=== PATIENT | female | born 1960 | race Caucasian/White ===

== ENCOUNTER 2020-09-25 16:10 | Outpatient (REF) | payer OTHER, SELFPAY ==
--- NOTE | 2020-09-25 | MM_ITS ---
EXAMINATION: MM SCREENING DIGITAL BREAST TOMOSYNTHESIS, BILATERAL CLINICAL INFORMATION: Screening. Asymptomatic. Family history breast cancer in mother and sister. Benign right MR guided biopsy 12/18/2017 (benign breast tissue with stromal fibrosis, apocrine metaplasia, and microcysts). The lifetime risk of breast cancer based on the Tyrer-Cuzick Model is 23%. COMPARISON: Mammography: 03/11/2019, 12/18/2017, 12/08/2017; MRI breasts 11/10/2019. TECHNIQUE: Digital breast tomosynthesis is performed in both the craniocaudal and mediolateral oblique views along with computer-aided detection (CAD). Synthesized 2D images are generated from the tomosynthesis. FINDINGS: There are scattered areas of fibroglandular density (ACR BI-RADS breast composition Category b). Parenchymal pattern is similar to prior studies. There is no developing density or interval mass or architectural abnormality. Retroareolar duct ectasia on the right is stable from prior studies. The left breast shows no abnormal calcifications. The bilateral axilla and skin contours are unremarkable. There is biopsy clip marker again noted anterior central right breast. There are new calcifications at the biopsy site around the clip possibly related to fat necrosis. Patient will be recalled for additional magnification views. MM/MM tomosynthesis screening BI IMPRESSION: 1. Right: New calcifications around the biopsy clip marker anterior right breast. 2. Left: No mammographic evidence of malignancy. ASSESSMENT: BI-RADS 0: Incomplete - Need Additional Imaging Evaluation RECOMMENDATION: 1. Additional views of the right breast (magnification CC, magnification ML). 2. Radiology department staff will contact the patient for additional imaging. 3. The lifetime risk of breast cancer based on the Tyrer-Cuzick Model is 23%. Continued additional annual adjunct screening with breast MRI is also suggested. This patient's information was entered into a reminder system with a target due date for their next mammogram.
== END 2020-09-25 16:11 | disposition home or self-care (01) ==
LOC: HO.MAMMO 16:10
PROVIDERS: PCP Internal Medicine; Visit Provider Internal Medicine
DX: Z12.31 Encounter for screening mammogram for malignant neoplasm of breast (principal)
CPT/HCPCS: 77063; 77067

== ENCOUNTER 2020-10-01 09:42 | Outpatient (REF) | payer OTHER, SELFPAY ==
--- NOTE | 2020-10-01 | MM_ITS ---
EXAMINATION: MM DIAGNOSTIC DIGITAL MAMMOGRAPHY, RIGHT CLINICAL INFORMATION: Recall from screening for new round calcifications around biopsy clip marker right breast. Prior history MR guided biopsy 12/18/2017 (benign breast tissue with stromal fibrosis, apocrine metaplasia, and microcysts). COMPARISON: Mammography: 09/25/2020, 03/11/2019, MR breasts 11/10/2019, MR guided biopsy right breast 12/18/2017. TECHNIQUE: Digital mammography is performed in the following views: Magnification CC, magnification ML. FINDINGS: There are scattered areas of fibroglandular density (ACR BI-RADS breast composition Category b). There are over 10 new round calcifications of slightly varying size at prior MR biopsy site. The calcifications have probable benign appearance. Results are discussed with the patient and her at time of visit. Management options discussed with patient. Patient prefers stereotactic sampling. Results and recommendation called to office (Gloria) for Dr. Cuenca on 10/01/2020. Results also called to medical record coder (Pinky) for Dr. Alamo on 10/01/2020. MM/MM added views RT IMPRESSION: New calcifications at prior MR biopsy site, over 10 in number. ASSESSMENT: BI-RADS 4: Suspicious (subcategory 4A: Low suspicion for malignancy) RECOMMENDATION: Stereotactic biopsy right breast calcifications. This patient's information was entered into a reminder system with a target due date for their next mammogram.
== END 2020-10-01 09:43 | disposition home or self-care (01) ==
LOC: HO.MAMMO 09:42
PROVIDERS: Visit Provider Internal Medicine
DX: R92.1 Mammographic calcification found on diagnostic imaging of breast (principal)
CPT/HCPCS: 77065

== ENCOUNTER → 2020-10-09 09:45 | Outpatient (BNVA) | payer OTHER, SELFPAY | PROVIDERS: PCP Internal Medicine; Referring Provider Internal Medicine; Visit Provider Surgery | DX: Z76.89 Persons encountering health services in other specified circumstances (principal) ==

== ENCOUNTER 2020-10-10 10:21 | Outpatient (REF) | payer OTHER, SELFPAY ==
--- NOTE | 2020-10-10 10:24 | MM_ITS ---
EXAMINATION: STEREOTACTIC TOMOSYNTHESIS-GUIDED VACUUM-ASSISTED BREAST BIOPSY, RIGHT SPECIMEN RADIOGRAPH, RIGHT POST PROCEDURE DIGITAL MAMMOGRAM, RIGHT CLINICAL INFORMATION: New round calcifications at prior MR biopsy site for stereotactic sampling. MR guided biopsy 12/18/2017 (benign breast tissue with stromal fibrosis, apocrine metaplasia, and microcysts). Family history metastatic breast cancer in mother and DCIS in sister. COMPARISON: Mammography 10/01/2020, 09/25/2020, 03/11/2019, MR breasts 11/10/2019, MR guided breast biopsy 12/18/2017. TECHNIQUE/PROCEDURE: Informed consent was obtained from the patient after discussion of the benefits, risks, and alternatives to biopsy today. Patient appeared to understand. Gave opportunity for questions. Patient signed consent form. BIOPSY TABLE: [employer]. Prone Biopsy System. LESION: Calcifications of prior MR biopsy site anterior central right breast. LOCAL ANESTHESIA: 5 mL 1% lidocaine; 10 mL 1% lidocaine with epinephrine. DERMATOTOMY: Single skin zee dermatotomy performed. NEEDLE: [employer] Eviva 9-gauge vacuum assisted core biopsy device. APPROACH: lateral medial. TARGETING: Digital breast tomosynthesis used for targeting. CORES: 8. CLIP: [employer] SecurMark T-shaped marker. SPECIMEN RADIOGRAPH: Specimen radiograph is taken in separate room using digital mammography. The index calcifications are in the excised cores. There are at least 10 calcifications in the cores. The prior MR biopsy clip marker is included in one of the cores. POST PROCEDURE UNILATERAL DIGITAL MAMMOGRAM: The post biopsy mammogram is performed in separate room using separate digital mammography equipment from the biopsy procedure. CC and ML views are obtained. There are scattered areas of fibroglandular density (breast composition category: b). The clip marker is in position. The calcifications are decreased at the biopsy site. No gross hematoma. The patient tolerated the procedure well. No immediate complications. Home instructions reviewed with the patient. Final pathology results are pending. MM/MM stereotactic loc RT IMPRESSION: 1. Digital tomosynthesis-guided core biopsy right breast with clip placement. 2. Specimen radiograph taken and post procedure mammogram. There is satisfactory positioning of the biopsy clip. 3. Final pathology results pending. An addendum report will be issued.
== END 2020-10-10 10:22 | disposition home or self-care (01) ==
LOC: HO.MAMMO 10:21
PROVIDERS: Visit Provider Surgery
DX: R92.0 Mammographic microcalcification found on diagnostic imaging of breast (principal); Z12.31 Encounter for screening mammogram for malignant neoplasm of breast
CPT/HCPCS: 19283; 88305; A4648

== ENCOUNTER 2021-04-03 12:44 | Outpatient (REF) | payer OTHER, SELFPAY ==
--- NOTE | ~2021-04-03 | MM_ITS ---
EXAMINATION: MM DIAGNOSTIC DIGITAL BREAST TOMOSYNTHESIS, RIGHT CLINICAL INFORMATION: Short interval six-month follow-up benign right stereotactic biopsy 10/10/2020 (Benign breast parenchyma with dense stromal fibrosis, apocrine metaplasia, dilated ducts, hemosiderin-related macrophages and stromal calcifications. Negative for atypia or malignancy). Prior MR biopsy at same location right breast 12/18/2017 (benign breast tissue with stromal fibrosis, apocrine metaplasia, microcysts). Family history breast cancer mother, age 65 in sister age 53. Tyrer-Cuzick Model is 22%. COMPARISON: Mammography: 10/10/2020, 10/01/2020, 09/25/2020, 03/11/2019; MRI bilateral breasts 11/10/2019. TECHNIQUE: Digital breast tomosynthesis is performed in both the craniocaudal and mediolateral oblique views along with computer-aided detection (CAD). Synthesized 2D images are generated from the tomosynthesis. Additional magnification right CC and magnification right ML views are obtained. FINDINGS: There are scattered areas of fibroglandular density (ACR BI-RADS breast composition Category b). There is a T shaped biopsy clip marker central anterior right breast with residual benign-appearing round calcifications. The prior MR biopsy clip marker at this location is no longer present, found in one of the stereotactic cores. There is retroareolar duct ectasia similar to prior exams. There is no interval mass or architectural abnormality or developing density. The skin contours are smooth. Results are provided to the patient at time of visit by the technologist. MM/MM tomosynthesis diagnostic RT IMPRESSION: Postsurgical changes anterior right breast. Residual benign-appearing round calcifications at biopsy site. ASSESSMENT: BI-RADS 2: Benign RECOMMENDATION: Routine annual mammography screening, due in 6 months. This patient's information was entered into a reminder system with a target due date for their next mammogram.
== END 2021-04-03 12:45 | disposition home or self-care (01) ==
LOC: HO.MAMMO 12:44
PROVIDERS: PCP Internal Medicine; Visit Provider Surgery
DX: R92.0 Mammographic microcalcification found on diagnostic imaging of breast (principal)
CPT/HCPCS: 77061; 77065

== ENCOUNTER → 2021-07-18 12:52 | Outpatient (BNVA) | payer OTHER, SELFPAY | PROVIDERS: PCP Internal Medicine; Visit Provider Surgery ==

== ENCOUNTER 2021-08-16 12:53 | Outpatient (REF) | payer OTHER, SELFPAY ==
--- NOTE | ~2021-08-16 | MR_ITS ---
EXAMINATION: MR BREAST WITHOUT AND WITH CONTRAST, BILATERAL CLINICAL INFORMATION: High-risk screening. Family history of breast cancer. Previous benign right breast biopsies. I have been assigned to dictate this case on 08/22/2021. COMPARISON: MRI 11/10/2019 TECHNIQUE: Imaging was performed with a dedicated breast coil. Prior to the administration of contrast, bilateral axial T1 and bilateral axial T2 weighted sequences were obtained. After the uneventful administration of?8 mL of Gadavist, dynamic contrast-enhanced VIBRANT series through the breasts in the axial plane were performed. Subtracted images were performed and reviewed. A delayed sagittal sequence through both breasts was acquired. Additionally, CAD post-processing, including maximum intensity projections, 3-D reconstructions and kinetic analysis, were performed an independent workstation and reviewed by the interpreting radiologist is a portion of this exam. FINDINGS: The patient's fibroglandular tissue demonstrates moderate background enhancement. LEFT BREAST: There is a tiny enhancing intramammary lymph node in the lower outer left breast. No suspicious masslike or non-masslike enhancement. No abnormal skin thickening or nipple retraction. No abnormal architectural distortion. Review of the T2 weighted images demonstrates no fibrocystic changes or dilated ducts. Review of kinetic images reveals no additional findings. RIGHT BREAST: Biopsy clip artifact at 8:00 without significant associated enhancement. No suspicious masslike or non-masslike enhancement. No abnormal skin thickening or nipple retraction. No abnormal architectural distortion. Review of the T2 weighted images demonstrates no fibrocystic changes or dilated ducts. Review of kinetic images reveals no additional findings. There is no suspicious internal mammary chain or axillary adenopathy. Limited views of the chest and abdomen are unremarkable. MR/MR breast BI wo/w con IMPRESSION: No MR specific evidence of malignancy. ASSESSMENT: LEFT BREAST: BI-RADS 1-Negative RIGHT BREAST: BI-RADS 1-Negative RECOMMENDATIONS: Clinical follow-up. Continued annual mammographic surveillance. Further breast MRI as risk factors dictate.
== END 2021-08-16 12:54 | disposition home or self-care (01) ==
LOC: HO.MRI 12:53
PROVIDERS: PCP Internal Medicine; Visit Provider Surgery
DX: Z91.89 Other specified personal risk factors, not elsewhere classified (principal); Z80.3 Family history of malignant neoplasm of breast
CPT/HCPCS: 77049

== ENCOUNTER 2021-09-27 11:57 | Outpatient (REF) | payer OTHER, SELFPAY ==
--- NOTE | ~2021-09-27 | MM_ITS ---
EXAMINATION: MM SCREENING DIGITAL BREAST TOMOSYNTHESIS, BILATERAL CLINICAL INFORMATION: Screening. Asymptomatic. Family history breast cancer mother, age 65 and sister, age 53. Benign right MR biopsy 12/18/2017 (benign breast tissue with stromal fibrosis, apocrine metaplasia, microcysts). Subsequent benign right stereotactic biopsy for calcifications at prior biopsy site (benign breast parenchyma with dense stromal fibrosis, apocrine metaplasia, dilated ducts, hemosiderin-related macrophages and stromal calcifications -Negative for atypia or malignancy). The lifetime risk of breast cancer based on the Tyrer-Cuzick Model is 22%. COMPARISON: Mammography: 04/03/2021, 10/10/2020, 10/01/2020, 09/25/2020, 03/11/2019, 12/08/2017; MRI breasts 08/16/2021. TECHNIQUE: Digital breast tomosynthesis is performed in both the craniocaudal and mediolateral oblique views along with computer-aided detection (CAD). Synthesized 2D images are generated from the tomosynthesis. FINDINGS: There are scattered areas of fibroglandular density (ACR BI-RADS breast composition Category b). There are no significant masses, abnormal calcifications, or other abnormalities. There is biopsy clip marker anterior right breast with some residual benign round calcifications. Neither breast shows developing density. The axilla and skin contours are unremarkable. MM/MM tomosynthesis screening BI IMPRESSION: No mammographic evidence of malignancy. ASSESSMENT: BI-RADS 2: Benign RECOMMENDATION: 1. Routine annual mammography screening. 2. The lifetime risk of breast cancer based on the Tyrer-Cuzick Model is 22%. Additional annual adjunct screening with breast MRI may be of benefit in women with a risk score of 20% or greater. This patient's information was entered into a reminder system with a target due date for their next mammogram.
== END 2021-09-27 11:58 | disposition home or self-care (01) ==
LOC: HO.MAMMO 11:57
PROVIDERS: PCP Internal Medicine; Visit Provider Surgery
DX: Z12.31 Encounter for screening mammogram for malignant neoplasm of breast (principal)
CPT/HCPCS: 77063; 77067

== ENCOUNTER 2022-09-15 11:48 | Outpatient (REF) | payer OTHER, SELFPAY ==
--- NOTE | ~2022-09-15 | US_ITS ---
EXAMINATION: US SCREENING ULTRASOUND BREAST, BILATERAL CLINICAL INFORMATION: High-risk screening. Family history breast cancer, mother and sister. COMPARISON: Digital breast tomosynthesis 09/27/2021, breast MRI 08/16/2021. TECHNIQUE: Ultrasound is performed using grayscale imaging and color Doppler. Imaging is performed to include the four quadrants and retroareolar region. Both breasts are imaged. FINDINGS: Right breast: There is no suspicious finding by ultrasound. There is no solid mass or focal architectural abnormality. Left breast: There is no suspicious finding by ultrasound. There is no solid mass or focal architectural abnormality. US/US breast RT complete IMPRESSION: No suspicious findings on screening breast ultrasound. ASSESSMENT: BI-RADS 1: Negative RECOMMENDATION: Routine annual mammography screening. This patient's information was entered into a reminder system with a target due date for their next mammogram.
--- NOTE | ~2022-09-15 | US_ITS ---
EXAMINATION: US SCREENING ULTRASOUND BREAST, BILATERAL CLINICAL INFORMATION: High-risk screening. Family history breast cancer, mother and sister. COMPARISON: Digital breast tomosynthesis 09/27/2021, breast MRI 08/16/2021. TECHNIQUE: Ultrasound is performed using grayscale imaging and color Doppler. Imaging is performed to include the four quadrants and retroareolar region. Both breasts are imaged. FINDINGS: Right breast: There is no suspicious finding by ultrasound. There is no solid mass or focal architectural abnormality. Left breast: There is no suspicious finding by ultrasound. There is no solid mass or focal architectural abnormality. US/US breast LT complete IMPRESSION: No suspicious findings on screening breast ultrasound. ASSESSMENT: BI-RADS 1: Negative RECOMMENDATION: Routine annual mammography screening. This patient's information was entered into a reminder system with a target due date for their next mammogram.
== END 2022-09-15 11:49 | disposition home or self-care (01) ==
LOC: HO.MAMMO 11:48
PROVIDERS: PCP Internal Medicine; Visit Provider Surgery
DX: Z91.89 Other specified personal risk factors, not elsewhere classified (principal); Z80.3 Family history of malignant neoplasm of breast
CPT/HCPCS: 76641

== ENCOUNTER 2022-10-03 11:42 | Outpatient (REF) | payer OTHER, SELFPAY ==
--- NOTE | ~2022-10-03 | MM_ITS ---
EXAMINATION: MM SCREENING DIGITAL BREAST TOMOSYNTHESIS, BILATERAL CLINICAL INFORMATION: Screening. Asymptomatic. Family history breast cancer, mother and sister. COMPARISON: Mammography: 09/27/2021, 04/03/2021, 10/10/2020, 10/19/2020, 09/25/2020, 03/11/2019 TECHNIQUE: Digital breast tomosynthesis is performed in both the craniocaudal and mediolateral oblique views along with computer-aided detection (CAD). Synthesized 2D images are generated from the tomosynthesis. FINDINGS: There are scattered areas of fibroglandular density (ACR BI-RADS breast composition Category b). There are no significant masses, abnormal calcifications, or other abnormalities. The axilla and skin contours are unremarkable. Right breast has biopsy clip marker with adjacent stable round calcifications anterior breast. No significant changes. MM/MM tomosynthesis screening BI IMPRESSION: No mammographic evidence of malignancy. ASSESSMENT: BI-RADS 2: Benign RECOMMENDATION: Routine annual mammography screening. This patient's information was entered into a reminder system with a target due date for their next mammogram.
== END 2022-10-03 11:43 | disposition home or self-care (01) ==
LOC: HO.MAMMO 11:42
PROVIDERS: Absent Provider Obstetrics & Gynecology; PCP Internal Medicine; Referring Provider Surgery; Visit Provider Internal Medicine
DX: Z12.31 Encounter for screening mammogram for malignant neoplasm of breast (principal)
CPT/HCPCS: 77063; 77067

== ENCOUNTER 2023-09-03 14:30 | Outpatient (AMB) | payer OTHER, SELFPAY ==
--- NOTE | 2023-09-03 14:35 | MHC.OFFVIS ---
Intake Vital Signs 09/03/23 14:51 Height 5 ft 6 in Weight 177 lb 6 oz BMI 28.6 BP 130/66 Blood Pressure Location Lt brachial Position Sitting Pulse 77 Intake Visit Reasons: Breast exam, 1 year follow up Intake Note: Patient is seen in office for yearly breast exam. Patient c/o: denies any concern or changes regarding the breast Social Group Worker Required: No Note Specialist: Note Specialist Present Accompanied by: Self / Same As Patient Allergies sulfamethoxazole Allergy (Unknown, Verified 09/04/22 10:33) rash Latex Allergy Allergy (Unknown, Uncoded 09/04/22 10:33) itching, rash Medication List - Last Reconciled 09/03/23 by Ben Foster MD albuterol sulfate mg inhalation PRN estradiol 0.01%(0.1mg/gram) vaginal levalbuterol tartrate 45 mcg/actuation 2 puffs inhalation Q4-6H montelukast 10 mg PO DAILY tiotropium bromide 2.5 mcg/actuation (Spiriva Respimat) 2 puffs PO DAILY triamcinolone acetonide 0.1% topical DAILY HPI HPI Comments History of Present Illness Details 63-year-old female presenting for a follow-up high risk breast cancer examination. She has a previous patient of Dr. Ford and Dr. Alamo determined to have a remaining lifetime risk of breast cancer of 34%, well above the 20% threshold. She has a family history of breast cancer in her mother at the age of 65 and sister at the age of 55. Her sister is alive and well and was diagnosed with ductal carcinoma in situ. Her sister was recently diagnosed recurrent invasive carcinoma ER/MO negative, HER2 Carleen positive. She underwent chemotherapy and mastectomy. The patient was followed with yearly breast MRIs alternating every 6 months mammograms although she wishes to hold off on MRIs for now. She was placed on letrozole by Dr. Steven Hamlin for 5 years and completed this treatment on March 2020. Breast MRI in 2017 showed enlargement of an enhancing area in the right breast in the subareolar region visible only by MRI. A MR guided biopsy was performed on 12/18/2017 revealed benign breast tissue with stromal fibrosis, apocrine metaplasia and microcysts. A mammogram performed on 09/25/2020 demonstrated new clustered microcalcifications in the retroareolar area of the right breast around the region of the prior MR guided biopsy. Additional views on 10/01/2020 demonstrated 10 grouped microcalcifications in this area. The patient opted for stereotactic guided core biopsy which was performed 10/10/2020. This revealed benign breast parenchyma with dense stromal fibrosis, apocrine metaplasia, dilated duct, hemosiderin-laden macrophages and stromal calcifications; negative for atypia or malignancy. Biopsy clip from the MRI guided biopsy was noted within the specimen. A follow-up right breast mammography performed on 04/03/2021 revealed postsurgical changes in the anterior right breast from the previous core biopsies. Residual benign-appearing round calcifications at the biopsy site. This was felt to be benign (BI-RADS 2) and routine annual screening recommended which would be due in 6 months time. Her most recent mammogram dated 10/03/2022 revealed no mammographic evidence of malignancy (BI-RADS 2). She is scheduled for her annual mammogram on 10/09/2023. She is not interested in pursuing any further MRIs but is considering restarting if a new MRI machine is quicker and quieter. She denies any ongoing breast symptoms currently. 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 COPD (chronic obstructive pulmonary disease) Asthma Family History Mother Breast cancer, Onset Age: 65 Sister Breast cancer, Onset Age: 55 Social History Alcohol intake: current Alcohol intake frequency: holidays/special occasions only Alcohol type: wine Review of Systems Const All systems reviewed & are unremarkable except as noted in HPI and below Card Denies chest pain Denies nipple discharge Skin/Breast Denies breast swelling, Denies breast skin changes, Denies breast pain, Denies breast mass, Denies change in breast shape and Denies nipple discharge [place]/Lymph Denies lymphadenopathy Physical Exam Const General: comfortable, no acute distress and well developed Nutritional Appearance: well nourished Orientation/consciousness: patient oriented x3 Limitations: no limitations Neck Neck: Yes no JVD Lymphatic: no lymphadenopathy noted Chest Other: Left breast: No skin change, no nipple retraction, no nipple discharge, no palpable mass, no enlarged lymph nodes. Right breast: No skin change, no nipple retraction, no nipple discharge, no palpable mass, no enlarged lymph nodes Resp Effort & Inspection: normal respiratory effort GI Inspection: Yes normal to inspection Skin General skin exam: no rashes or lesions noted Neuro General: patient oriented x3 Extrem General: Yes no clubbing, cyanosis or edema Assessment & Plan Assessment & Plan (1) Family history of breast cancer: Code(s): Z80.3 - Family history of malignant neoplasm of breast Plan: 63-year-old female presenting with a strong family history of breast cancer in both her mother and sister found to have an abnormal area of microcalcification in the right breast at the site of a previous MR guided biopsy just below the nipple. She subsequently underwent stereotactic guided core biopsy which revealed benign breast tissue. Findings were consistent with scar from previous biopsy and included the biopsy clip from the MR guided biopsy as well. Patient denies any ongoing breast symptoms in generally feels well. Her most recent mammogram dated 10/03/2022 revealed no suspicious findings in either breast (BI-RADS 2). Bilateral screening ultrasounds performed on 10/16/2022 also revealed no suspicious findings (BI-RADS 1). Examination today revealed no suspicious findings in either breast and no enlarged lymph nodes. I recommended a follow-up examination in 1 year. She is scheduled for annual mammogram on 10/09/2023. She is welcome to call sooner for any new concerns. (2) At high risk for breast cancer: Code(s): Z91.89 - Other specified personal risk factors, not elsewhere classified Coding Level of Care Code Est Pt Level 3 (49892) Diagnoses Family history of breast cancer Z80.3 At high risk for breast cancer Z91.89
[2023-09-03 14:51] VITALS: BP 130/66; PULSE 77; BMI 28.6
== END 2023-09-03 15:06 | disposition home or self-care (01) ==
PROVIDERS: PCP Internal Medicine; Visit Provider Surgery
DX: Z80.3 Family history of malignant neoplasm of breast (principal); Z91.89 Other specified personal risk factors, not elsewhere classified
CPT/HCPCS: 99213

== ENCOUNTER → 2023-09-03 14:30 | Outpatient (BNVA) | payer OTHER, SELFPAY | PROVIDERS: PCP Internal Medicine; Visit Provider Surgery ==

== ENCOUNTER 2023-11-02 13:50 | Outpatient (REF) | payer OTHER, SELFPAY ==
--- NOTE | ~2023-11-02 | MM_ITS ---
EXAMINATION: MM SCREENING DIGITAL BREAST TOMOSYNTHESIS, BILATERAL CLINICAL INFORMATION: Screening. Asymptomatic. COMPARISON: Mammography: This study is compared with prior exams dating back to 2019. TECHNIQUE: Digital breast tomosynthesis is performed in both the craniocaudal and mediolateral oblique views along with computer-aided detection (CAD). Synthesized 2D images are generated from the tomosynthesis. FINDINGS: There are scattered areas of fibroglandular density (ACR BI-RADS breast composition Category b). There are no significant masses, abnormal calcifications, or other abnormalities. There is a tissue marker in the right breast from prior benign percutaneous biopsy. It is associated with few, benign calcifications and some benign postbiopsy architectural change. MM/MM tomosynthesis screening BI IMPRESSION: No mammographic evidence of malignancy. ASSESSMENT: BI-RADS BI-RADS 1 - Negative RECOMMENDATION: Routine annual mammography screening. 1 year F/U This examination should not preclude the clinical evaluation of a suspicious palpable abnormality. This patient's information was entered into a reminder system with a target due date for their next mammogram.
== END 2023-11-02 13:51 | disposition home or self-care (01) ==
LOC: HO.MAMMO 13:50
PROVIDERS: PCP Internal Medicine; Visit Provider Internal Medicine
DX: Z12.31 Encounter for screening mammogram for malignant neoplasm of breast (principal)
CPT/HCPCS: 77063; 77067

== ENCOUNTER → 2023-11-02 14:00 | Outpatient (BNV) | payer OTHER, SELFPAY | PROVIDERS: PCP Internal Medicine; Visit Provider Radiology Diagnostic Radiology | DX: Z12.31 Encounter for screening mammogram for malignant neoplasm of breast (principal) | CPT/HCPCS: 77063; 77067 ==

== ENCOUNTER 2024-09-08 13:15 | Outpatient (AMB) | payer OTHER, SELFPAY ==
--- NOTE | 2024-09-08 13:26 | MHC.OFFVIS ---
Vital Signs 09/08/24 13:32 Height 5 ft 6 in Weight 181 lb 4 oz BMI 29.3 BP 134/69 Blood Pressure Location Lt brachial Position Sitting Pulse 72 Intake Visit Reasons: Breast exam, 1 year follow up Intake Note: Patient is seen in office for yearly breast exam. Pt c/o: no concerns or changes since last visit mm sched: 11/03/24 @2pm Supervisor Pipelines Required: No Automotive Parts Salesperson: Automotive Parts Salesperson Present Accompanied by: Self / Same As Patient Allergies sulfamethoxazole Allergy (Unknown, Verified 09/04/22 10:33) rash Latex Allergy Allergy (Unknown, Uncoded 09/04/22 10:33) itching, rash Medication List - Last Reconciled 09/08/24 by Ben Foster MD albuterol sulfate mg inhalation PRN atorvastatin 40 mg PO DAILY estradiol 0.01%(0.1mg/gram) vaginal levalbuterol tartrate 45 mcg/actuation 2 puffs inhalation Q4-6H montelukast 10 mg PO DAILY tiotropium bromide 2.5 mcg/actuation (Spiriva Respimat) 2 puffs PO DAILY triamcinolone acetonide 0.1% topical DAILY HPI Comments Details: 8-year-old female presenting for a follow-up high risk breast cancer examination. She has a previous patient of Dr. Ford and Dr. Alamo determined to have a remaining lifetime risk of breast cancer of 34%, well above the 20% threshold. She has a family history of breast cancer in her mother at the age of 65 and sister at the age of 55. Her sister is alive and well and was diagnosed with ductal carcinoma in situ. Her sister was recently diagnosed recurrent invasive carcinoma ER/NH negative, HER2 Carleen positive. She underwent chemotherapy and mastectomy. The patient was followed with yearly breast MRIs alternating every 6 months mammograms although she wishes to hold off on MRIs for now. She was placed on letrozole by Dr. Steven Hamlin for 5 years and completed this treatment on March 2020. Breast MRI in 2017 showed enlargement of an enhancing area in the right breast in the subareolar region visible only by MRI. A MR guided biopsy was performed on 12/18/2017 revealed benign breast tissue with stromal fibrosis, apocrine metaplasia and microcysts. A mammogram performed on 09/25/2020 demonstrated new clustered microcalcifications in the retroareolar area of the right breast around the region of the prior MR guided biopsy. Additional views on 10/01/2020 demonstrated 10 grouped microcalcifications in this area. The patient opted for stereotactic guided core biopsy which was performed 10/10/2020. This revealed benign breast parenchyma with dense stromal fibrosis, apocrine metaplasia, dilated duct, hemosiderin-laden macrophages and stromal calcifications; negative for atypia or malignancy. Biopsy clip from the MRI guided biopsy was noted within the specimen. Her most recent mammogram dated 11/02/2023 revealed no mammographic evidence of malignancy (BI-RADS 1). She is interested in bilateral screening ultrasounds rather than breast MRI. She denies any ongoing breast symptoms currently. 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 COPD (chronic obstructive pulmonary disease) Asthma Family History Mother Breast cancer, Onset Age: 65 Sister Breast cancer, Onset Age: 55 Social History Alcohol intake: current Alcohol intake frequency: holidays/special occasions only Alcohol type: wine Review of Systems Const All systems reviewed & are unremarkable except as noted in HPI and below Card Denies chest pain Denies nipple discharge Skin/Breast Denies breast swelling, Denies breast skin changes, Denies breast pain, Denies breast mass, Denies change in breast shape and Denies nipple discharge Darien/Lymph Denies lymphadenopathy Physical Exam Vital Signs: Last Vital Signs Pulse 72 09/08/24 13:32 BP 134/69 09/08/24 13:32 BMI result Body Mass Index 29.3 Const General: comfortable, no acute distress and well developed Nutritional Appearance: well nourished Orientation/consciousness: patient oriented x3 Limitations: no limitations Neck Neck: Yes no JVD Lymphatic: no lymphadenopathy noted Chest Other: Left breast: No skin change, no nipple retraction, no nipple discharge, no palpable mass, no enlarged lymph nodes. Right breast: No skin change, no nipple retraction, no nipple discharge, no palpable mass, no enlarged lymph nodes Resp Effort & Inspection: normal respiratory effort GI Inspection: Yes normal to inspection Skin General skin exam: no rashes or lesions noted Neuro General: patient oriented x3 Extrem General: Yes no clubbing, cyanosis or edema Assessment & Plan Assessment & Plan (1) At high risk for breast cancer: Code(s): Z91.89 - Other specified personal risk factors, not elsewhere classified Category: Medical (2) Family history of breast cancer: Code(s): Z80.3 - Family history of malignant neoplasm of breast Category: Medical Plan 64-year-old female presenting with a strong family history of breast cancer in both her mother and sister found to have an abnormal area of microcalcification in the right breast at the site of a previous MR guided biopsy just below the nipple. She subsequently underwent stereotactic guided core biopsy which revealed benign breast tissue. Findings were consistent with scar from previous biopsy and included the biopsy clip from the MR guided biopsy as well. Patient denies any ongoing breast symptoms in generally feels well. Her most recent mammogram dated 11/02/2023 revealed no mammographic evidence of malignancy (BI-RADS 1). Examination today revealed no suspicious findings in either breast. A bilateral screening ultrasound will be ordered for six-month following her next mammogram as an alternative to breast MRI. She will follow-up in 1 year for routine breast examination. She is welcome to call sooner for any new concerns. Orders: Orders US breast LT complete 05/01/25 Z80.3 - Family history of malignant neoplasm of breast, Z91.89 - Other specified personal risk factors, not elsewhere classified US breast RT complete 05/01/25 Z80.3 - Family history of malignant neoplasm of breast, Z91.89 - Other specified personal risk factors, not elsewhere classified Coding Level of Care Code Est Pt Level 3 (73808) Diagnoses At high risk for breast cancer Z91.89 Family history of breast cancer Z80.3
[2024-09-08 13:32] VITALS: BP 134/69; PULSE 72; BMI 29.3
== END 2024-09-08 13:48 | disposition home or self-care (01) ==
PROVIDERS: PCP Internal Medicine; Visit Provider Surgery
DX: Z91.89 Other specified personal risk factors, not elsewhere classified (principal); Z80.3 Family history of malignant neoplasm of breast
CPT/HCPCS: 99213

== ENCOUNTER → 2024-09-08 13:15 | Outpatient (BNVA) | payer OTHER, SELFPAY | PROVIDERS: PCP Internal Medicine; Visit Provider Surgery ==

== ENCOUNTER 2024-11-03 13:50 | Outpatient (REF) | payer OTHER, SELFPAY ==
--- NOTE | ~2024-11-03 | MM_ITS ---
EXAMINATION: MM SCREENING DIGITAL BREAST TOMOSYNTHESIS, BILATERAL CLINICAL INFORMATION: Screening. Asymptomatic. History of breast cancer including sister and mother. COMPARISON: Mammography: Comparison is made with available priors TECHNIQUE: Digital breast mammography with tomosynthesis is performed in both the craniocaudal and mediolateral oblique views along with computer-aided detection (CAD). FINDINGS: There are scattered areas of fibroglandular density (ACR BI-RADS breast composition Category b). Right marker clip from previous benign needle core biopsy. There are no significant masses, abnormal calcifications, or other abnormalities. MM/MM tomosynthesis screening BI IMPRESSION: No mammographic evidence of malignancy. ASSESSMENT: BI-RADS BI-RADS 2 - Benign Findings RECOMMENDATION: Routine annual mammography screening. Patient has a strong family history of breast cancer including mother and sister. Breast MRI yearly screening surveillance could be considered for further evaluation. 1 year F/U This examination should not preclude the clinical evaluation of a suspicious palpable abnormality. This patient's information was entered into a reminder system with a target due date for their next mammogram. Electronically signed by: Meli Cho DO 11/03/2024 02:19 PM [facility]
== END 2024-11-03 13:51 | disposition home or self-care (01) ==
LOC: HO.MAMMO 13:50
PROVIDERS: PCP Internal Medicine; Visit Provider Internal Medicine
DX: Z12.31 Encounter for screening mammogram for malignant neoplasm of breast (principal)
CPT/HCPCS: 77063; 77067

== ENCOUNTER → 2024-11-03 14:00 | Outpatient (BNV) | payer OTHER, SELFPAY | PROVIDERS: PCP Internal Medicine; Visit Provider Internal Medicine | DX: Z12.31 Encounter for screening mammogram for malignant neoplasm of breast (principal) | CPT/HCPCS: 77063; 77067 ==

== ENCOUNTER 2025-06-13 07:50 | Outpatient (REF) | payer OTHER, SELFPAY ==
--- NOTE | ~2025-06-13 | US_ITS ---
EXAMINATION: US SCREENING ULTRASOUND BREAST, BILATERAL CLINICAL INFORMATION: Dense breasts on mammography. Screening ultrasound. COMPARISON: Comparison is made with available prior examinations. TECHNIQUE: Ultrasound is performed using grayscale imaging and color Doppler. Imaging is performed to include the four quadrants and retroareolar region. Both breasts are imaged. FINDINGS: Right breast: There is no suspicious finding by ultrasound. There is no solid mass or focal architectural abnormality. There are a few ectatic ducts in the retroareolar region which are benign. Left breast: There is no suspicious finding by ultrasound. There is no solid mass or focal architectural abnormality. There are a few ectatic ducts in the retroareolar region which are benign. US/US breast BI complete IMPRESSION: No suspicious findings on screening breast ultrasound. ASSESSMENT: BI-RADS 2 - Benign Findings RECOMMENDATION: 1 year F/U This patient's information was entered into a reminder system with a target due date for their next mammogram. Electronically signed by: Meli Cho DO 06/13/2025 12:42 PM EDT
--- OUTSIDE RECORDS SUMMARY | 2025-06-13 07:53 | XMS_ITS | Data Portability ---
Author Organization [place] - [facility],, SHANTE BERGERON MD Address [address] [address] Care Team Providers Care Care Nurse Rn Name Role Phone JESSA SNYDER Primary Care Provider Assessment No assessment recorded. Plan of Treatment Reminders Order Date Submit Date Provider Last Modified By Organization Details Last Modified Time Details Appointments None recorded. Lab cytology report, thin prep, smear or scraping, cervical or vaginal 2023 024 SJ [facility] (Centralized Electronic Ordering - All Locations), Patient Can Go To The Location Of Their Choice, [id number] 4 18:06:01 hemoglobi n, gastroint estinal, stool 2023 024 [email or web address] 1 In-Office Order, Internal Use Only DO Not Attach Compendium DO Not Attach Compendium, Do Not Delete/merge, [id number] 4 10:41:52 pap test, thinprep, cervical 2022 023 [email or web address] [facility] (Centralized Electronic Ordering - All Locations), Patient Can Go To The Location Of Their Choice, [id number] 3 07:31:08 fecal occult blood, stool 2022 023 [email or web address] 1 In-Office Order, Internal Use Only DO Not Attach Compendium DO Not Attach Compendium, Do Not Delete/merge, [id number] 3 15:02:52 pap test, thinprep, cervical 2021 022 marryor [facility], Cytopathology Service, [address] [place] [address], [address], 2 07:45:40 fecal occult blood, stool 2021 022 [email or web address] 1 In-Office Order, Internal Use Only DO Not Attach Compendium DO Not Attach Compendium, Do Not Delete/merge, [id number] 2 14:57:38 pap test, thinprep, cervical 2020 021 [facility], Cytopathology Service, [address] [place], [address], 1 07:40:07 fecal occult blood, stool 2020 021 [email or web address] 1 In-Office Order, Internal Use Only DO Not Attach Compendium DO Not Attach Compendium, Do Not Delete/merge, [id number] 1 09:49:25 pap test, thinprep, cervical 2019 020 [facility], Cytopathology Service, [address] [place], [address], 0 07:35:52 fecal occult blood, stool 2019 020 [email or web address] In-Office Order, Internal Use Only DO Not Attach Compendium DO Not Attach Compendium, Do Not Delete/merge, [id number] 0 07:35:52 Referral None recorded. Procedures None recorded. Surgeries None recorded. Imaging MAMMO, screening , digital, bilateral - Breast Aspiratio n and/or Biopsy if needed 2023 024 [facility] (Imaging), [address] [place] [address], [address], 4 14:23:20 MAMMO, screening , digital, bilateral - Breast Aspiratio n and/or Biopsy if needed 2022 023 [facility] (Imaging), [address] [place] [address], [address], 4 07:35:49 MAMMO, screening , digital, bilateral 2021 022 [facility], [place], [address], 5 07:16:39 MAMMO, screening , digital, bilateral 2020 021 [facility], [place], [address], 2 07:50:27 MAMMO, screening , digital, bilateral 2019 020 [facility] (Mammo), [address] [place] [address] [place], [address], 1 07:33:30 Medication Orders estradiol 0.01% (0.1 mg/gram) vaginal cream 2023 024 [facility]/Pharmacy #[id number], [address] [place], [address], 4 10:41:52 triamcino lone acetonide 0.1 % topical ointment 2023 024 [facility]Ph[facility]acy #[id number], [address] [place], [address], 4 10:41:55 estradiol 0.01% (0.1 mg/gram) vaginal cream 2022 023 [facility]Pharmacy #[id number], [address] [place], [address], 3 15:02:50 triamcino lone acetonide 0.1 % topical ointment 2022 023 [facility]/Pharmacy #[id number], [address] [place], [address], 3 15:03:30 estradiol 0.01% (0.1 mg/gram) vaginal cream 2021 022 [facility]Pharmacy #[id number], [address] [place], [address], 2 14:57:42 Imvetuan Ledbetteran ce Pack 10 mcg vaginal insert 2020 021 [facility]/Pharmacy #0084, [address] [place], [address], 2 14:34:24 triamcino lone acetonide 0.1 % topical ointment 2020 021 [facility]/Ph[facility]acy #0084, [address] [place], [address], 1 09:45:48 estradiol 0.01% (0.1 mg/gram) vaginal cream 2019 020 [facility]/Pharmacy #[id number], [address] [place], [address], 0 10:24:58 triamcino lone acetonide 0.1 % topical ointment 2019 020 [facility]/Pharmacy #[id number], [address] [place], [address], 0 10:35:38 Patient TargetsNo targets recorded. Patient Instructions Encounter Date Encounter Id Patient Instructions Last Modified By Organization Details Last Modified Time 05/25/2020 [id number] atrophic vaginit is: care instructions Not available 05/25/2020 10:24:56 She is here for annual exam, doing well with aristocort for lichen sclerosis, elects to continue, and estradiol vaginal cream for atrophy as well. She appears to be doing well. She is advised to get 1500 mg of calcium daily into her diet and supplements combined. We discussed the benefits of adequate vitamin D supplementation to at least 400 units daily, daily aerobic exercise of 30 minutes, and stress reduction. Monthly self breast exam was taught, and stressed, and is advised to call if she discovers any new mass in the breast. Seat belt use for herself and passengers advised. The significant health benefits of becoming and remainig fit, with an optimal BMI, were also discussed. We discussed the potential reduction in chronic discomfort, the diminished risks of hypertension, diabetes, and heart disease with the proper weight management, and improved mobility as she ages. Strategies to reach and maintain her target weight wer discussed in detail, all questions answered. Not available 05/25/2020 10:25:15 05/30/2021 [id number] atrophic vaginit is: care instructions Not available 05/30/2021 09:45:46 learning about healthy weight Not available 05/30/2021 09:44:35 She is here for annual exam, doing well with aristocort for lichen sclerosis, elects to continue, and estradiol vaginal cream for atrophy as well. She only uses the E2 cream twice a week, scant amounts, a tube lasts more than a year. Mother and sister both had breast cancer, neither had BRCA testing. She was taking Letrozole medication for a [address] Ford, tyo decrease her risks of development of breast cancer, due to her family history, is finished wiht that now. She had BRCA testing in 2017, was negative. . She was getting annual breast MRI due to her [place] number. Continue Aristocort for lichen sclerosis. She is advised to increase from twice a week on the E2 cream to 3 to 4 times a week,.at least, as she is very atrophic this year, she will do so. She wants to try Imvexxy rx as her estradiol cream is expensive, will cla lit in so she can see how much it may cost. She appears to be doing well. She is advised to get 1500 mg of calcium daily into her diet and supplements combined. There is a health benefit with adequate vitamin D supplementation to at least 400 units daily, daily aerobic exercise of 30 minutes, and stress reduction. Monthly self breast exam was taught, and stressed, and is advised to call if she discovers any new mass in the breast. Not available 05/30/2021 09:51:01 06/09/2022 [id number] atrophic vaginit is: care instructions Not available 06/09/2022 14:57:38 learning about healthy weight radha Not available 06/09/2022 14:57:38 She is here for annual exam, has not been using the Aristocort or the estradiol cream regularly, is using the cream once a week or so, and has dyspareunia and tenderness the next day afterward when she urinates it stings . note from 2020: She is here for annual exam, doing well with aristocort for lichen sclerosis, elects to continue, and estradiol vaginal cream for atrophy as well. She only uses the E2 cream twice a week, scant amounts, a tube lasts more than a year. Mother and sister both had breast cancer, neither had BRCA testing. She was taking Letrozole medication for a [address] Ford, tyo decrease her risks of development of breast cancer, due to her family history, is finished wiht that now. She had BRCA testing in 2016, was negative. . She was getting annual breast MRI due to her [place] number. Continue Aristocort for lichen sclerosis. She is advised to increase from twice a week on the E2 cream to 3 to 4 times a week,.at least, as she is very atrophic this year, she will do so. She wants to try Imvexxy rx as her estradiol cream is expensive, will cla lit in so she can see how much it may cost. _ She appears to be doing well. She is going to try to use the Aristocort and the E2 cream more regularly, for comfort. We are not getting the results of her mammograms, she will have them sent. She will let me know if she wants to do annual breast MRIs. She is advised to get 1500 mg of calcium daily into her diet and supplements combined. There is a health benefit with adequate vitamin D supplementation to at least 400 units daily, daily aerobic exercise of 30 minutes, and stress reduction. Monthly self breast exam was taught, and stressed, and is advised to call if she discovers any new mass in the breast. Not available 06/09/2022 14:59:38 07/23/2023 [id number] learning about healthy weight Not available 07/23/2023 15:02:46 She is here for annual, last filled the estradiol cream 06/20, the Aristocort 06/19. She still has dyspareunia, But maybe I'm not using the creams enough. _ Note from 2021: She is here for annual exam, has not been using the Aristocort or the estradiol cream regularly, is using the cream once a week or so, and has dyspareunia and tenderness the next day afterward when she urinates it stings . She agrees to try the estradiol cream and the aristocort regularly for a while to see if it helps. She declines vaginal tablets or ring. She appears to be doing well. Monthly self breast exam was taught, and stressed, and is advised to call if she discovers any new mass in the breast. Not available 07/23/2023 15:04:28 08/11/2024 [id number] learning about healthy weight Not available 08/11/2024 10:41:50 She is here for annual, doing well, using the 2 creams regularly, the Aristocort and the estradiol, and with good benefit. Note from 2022: She is here for annual, last filled the estradiol cream 06/20, the Aristocort 06/19. She still has dyspareunia, But maybe I'm not using the creams enough. _ She appears to be doing well. Monthly self breast exam was taught, and stressed, and is advised to call if she discovers any new mass in the breast. Not available 08/11/2024 10:42:16 Reason for Referral None Reported. Results Created Date Observation Date Name Description Value Unit Range Abnormal Flag Note LastModifiedBy Organization Detail LastModifiedTime 05/30/20 21 05/30/2021 fecal occul t blood , stool Occult Blood negati ve Not Available In-Office Order Internal Use Only DO Not Attach Compendium DO Not Attach Compendium, Do Not Delete/merge, [id number] 05/30/2021 09:23:01 05/25/20 20 05/25/2020 fecal occul t blood , stool Occult Blood negati ve Not Available In-Office Order Internal Use Only DO Not Attach Compendium DO Not Attach Compendium, Do Not Delete/merge, [id number] 05/25/2020 10:16:49 05/25/20 20 05/25/2020 pap, [id number] ThinP rep Pap, Image d: NEGAT MINERVA FOR SQUAM OUS INTRA EPITH ELIAL LESIO N AND MALIG INDIO . Raffy lemus , CT( CP) (Case elect erick alberto sabina d 05 28 2020) ADEQU ACY: Satis facto ry Endoc ervic al/tr ansfo rmati on zone compo nent absen t. SOURC E: ThinP rep Pap HPV IF ASCUS , Cervi john, Image d CLINI JOHN INFOR MATIO N: HPV If Diagn osis of ASCUS . LPS neg, menop ause, z12.4 , z01.4 19 Not Available [facility], Cytopathology Service [address] [place], [address], 05/28/2020 14:17:52 05/30/20 21 05/30/2021 PAP1C ASE [id number] ThinP rep Pap, Image d: NEGAT MINERVA FOR SQUAM OUS INTRA EPITH ELIAL LESIO N AND MALIG INDOI . Audie flores , CT( CP) (Case elect erick alberto sabina d 05 31 2021) ADEQU ACY: Satis facto ry Endoc ervic al/tr ansfo rmati on zone compo nent absen t. SOURC E: ThinP rep Pap HPV IF ASCUS , Cervi john, Image d CLINI JOHN INFOR MATIO N: HPV If Diagn osis of ASCUS . LPS NEG [Z12. 4, Z01.4 19] Not Available [facility], Cytopathology Service [address] [place], [address], 05/31/2021 14:51:22 06/09/20 22 06/09/2022 PAP1C ASE [id number] ThinP rep Pap, Image d: NEGAT MINERVA FOR SQUAM OUS INTRA EPITH ELIAL LESIO N AND ROSALVA BORJAS . Melanie Calderon il , CT( CP) (Case elect erick alberto sabina d 06 14 2022) ADEQU ACY: Satis facto ry Endoc ervic al/tr ansfo rmati on zone compo nent absen t. SOURC E: ThinP rep Pap HPV IF Ascus : Refle x 16 and 18, Cervi john, Image d CLINI JOHN INFOR MATIO N: HPV If Diagn osis of ASCUS . lps 1 neg, [Z01. 419] Not Available [facility], Cytopathology Service [address] [place] [address], [address], 06/16/2022 12:41:50 06/09/20 22 06/09/2022 fecal occul t blood , stool Occult Blood negati ve Not Available In-Office Order Internal Use Only DO Not Attach Compendium DO Not Attach Compendium, Do Not Delete/merge, [id number] 06/09/2022 14:57:28 07/23/20 23 07/23/2023 [facility] CYTOL OGY results Meghan harper Name: VIRGEN CARLSON nt : [id number] (Age: 63) Lab Acces salud #: [id number] Colle ction Date: 2022 Acces salud Date: 2022 Sign Out Date: 023 Tissu e Sourc e: 1: THINP REP MULTILITH OPERATOR PAP TEST, CERVI JOHN: Final Diagn osis: NEGAT MINERVA FOR INTRA EPITH ELIAL LESIO N OR MALBRO INDIO . Satis facto ry for evalu ation . Endoc ervic al/tr ansfo rmati on zone prese nt. Clini john Histo ry: Date of Last Menst rual Perio d: not avail able Menst rual Histo ry: Post- menop ausal Contr acept minerva Histo ry: not avail able Ancil aydin Testi ng: HPV (ASCU S) Case image d by the Thin rep Fracisco Mercado m with analia man or vincent downey at [facility] ate Refer ence [facility] Cytol ogy, [address] [place] Clini john Histo ry (othe r): Z01.4 19, routi ne scree n, LPS neg Phone #: [phone], On-Ca ll Patho logis t: [id number] Not Available [facility] (Centralized Electronic Ordering - All Locations) Patient Can Go To The Location Of Their Choice, [id number] 08/04/2023 10:14:11 07/23/20 23 07/23/2023 fecal occul t blood , stool Occult Blood negati ve Not Available In-Office Order Internal Use Only DO Not Attach Compendium DO Not Attach Compendium, Do Not Delete/merge, [id number] 07/23/2023 14:38:56 08/11/20 24 08/15/2024 IGP, RFX APTIM A HPV ASCU diagnosis: Commen t NEGAT MINERVA FOR INTRA EPITH ELIAL LESJELENA N OR ROSALVA BORJAS . Not Available [facility] ([facility]) [address] [facility], [place], [address], 08/15/2024 18:06:01 08/11/2008/15/2024 IGP, RFX APTIM A HPV ASCU specimen adequacy: Commen t Satis facto ry for evalu ation . Not Available [facility] ([facility]) [address] [place], [address], 08/15/2024 18:06:01 08/11/2008/15/2024 IGP, RFX APTIM A HPV ASCU clinician provided ICD10: Commen t Z01.4 19 Not Available [facility] ([facility]) [address] [place], [address], 08/15/2024 18:06:01 08/11/20 24 08/15/2024 IGP, RFX APTIM A HPV ASCU performed by: Andrey Tariq (ASCP ) Not Available [facility] ([facility]) [address] [place], [address], 08/15/2024 18:06:01 08/11/20 24 08/15/2024 IGP, RFX APTIM A HPV ASCU . . Not Available [facility] ([facility]) [address] [facility], [place], [address], 08/15/2024 18:06:01 08/11/20 24 08/15/2024 IGP, RFX APTIM A HPV ASCU note: Alessandar watson The Pap smear is a scree reva test desig daniel to aid in the detec tion of rashad ligna nt and malig nant condi tions of the uteri ne cervi x. It is not a diagn ostic proce dure and shoul d not be used as the sole means of detec ting cervi john cance r. Both false -posi tive and false -nega tive repor ts do occur . Not Available [facility] ([facility]) [address] [facility], [place], [address], 08/15/2024 18:06:01 08/11/20 24 08/15/2024 IGP, RFX APTIM A HPV ASCU test methodology: Alessandra watson This liqui d based ThinP rep(R ) pap test was scree daniel with the use of an image guide d syststephane m. Not Available [facility] ([facility]) [address] [facility], [place], [address], 08/15/2024 18:06:01 08/11/20 24 08/15/2024 IGP, RFX APTIM A HPV ASCU . Alessandra t The HPV DNA refle x crite jose were not met with this speci men resul t there fore, no HPV testi ng was perfo rmed. Not Available [facility] ([facility]) [address], [place], [address], 08/15/2024 18:06:01 08/11/2008/11/2024 hemog lobin , gastr ointe kevin l, stool Occult Blood negati ve Not Available In-Office Order Internal Use Only DO Not Attach Compendium DO Not Attach Compendium, Do Not Delete/merge, [id number] 08/11/2024 10:24:04 11/03/20 24 11/03/2024 MAMMO , scree reva, digit al, bilat eral No observ ation record ed. [address] [place], [address], 11/03/2024 14:33:23 Result Notes None recorded. Problems Name Problem SNOMED Code Status Onset Date Resolution Date Notes Provider Name and Address Organization Details Recorded Time Family history of breast cancer 021625985 Active 2016 Mother and sister both had breast cancer, neither had BRCA testing. She was taking Letrozole medication for a [address] Ford, tyo decrease her risks of developmen t of breast cancer, due to her family history, is finished wiht that now. She had BRCA testing in 2017, was negative. . She was getting annual breast MRI due to her [place] number. Shante Bergeron MD [address], [place], [address], [place] - [facility], 1 09:48:35 Lichen sclerosus et atrophicus Active 2016 one finger introitus Shante Bergeron MD [address], [place], [address], [place] - [facility], 7 13:11:24 Atrophic vaginitis 17485587 Active 2016 Shante Bergeron MD [address], [place], [address], [place] - [facility], 7 13:13:21 Chronic obstructiv e pulmonary disease 41010358 Active 2019 Isidra Couch [place] - [facility], 0 10:15:18 Problem Notes None recorded. Procedures Surgical History Date Name Laterality Status Provider Name and Address Organization Details Recorded Time 3 Most Recent Mammogram completed Mehreen Galvez [place] - [facility], 08/11/2024 10:23:37 3 Most Recent Bone Density completed Mehreen Galvez [place] - [facility], 12/04/2016 11:25:33 2 Dilation and Curettage completed Shante Bergeron MD [address] [facility],[address], [place], [address], [place] - [facility], 03/12/2018 13:38:30 1 Breast Biopsy completed Mehreen Galvez [place] - [facility], 05/30/2021 09:24:31 0 Dilation and Curettage completed Mehreen Galvez [place] - [facility], 12/04/2016 11:24:15 0 Other completed Mehreen Galvez [place] - [facility], 04/15/2019 09:27:39 8 Caesarean Section completed Mehreen Galvez [place] - [facility], 12/04/2016 11:21:07 Imaging Results None recorded. Procedure Notes None recorded. Medical Equipment None Reported. Allergies Allergen ID Allergen Name Allergen Category Reaction Reaction Severity Criticality Documentation Date Start Date Code Code System Note Provider Name and Address Organization Details Recorded Time 81335 Substance with sulfonami de structure and antibacte rial mechanism of action (substanc e) medicatio n hives Not available Not available 12/04/2016 04846 8003 SNOMED Mehreen gil [place] - [facility], 7 11:14:19 Medications Name Sig Start Date Stop Date Status Note LastModified by Organization Details LastModified Time atorvastati n 40 mg tablet TAKE 1 TABLET BY MOUTH EVERY DAY active Not Available Not Available No t Available Estring 2 mg (7.5 mcg/24 hour) vaginal ring Insert one vaginal ring into the vaginal canal once every three months, discard after three months 03/12 completed Not Available Not Available Not Available doxycycline hyclate 100 mg capsule TAKE ONE CAPSULE BY MOUTH TWICE A DAY FOR 5 DAYS 04/15 completed Not Available Not Available Not Available albuterol sulfate 2.5 mg/3 mL (0.083 %) solution for nebulizatio n INHALE CONTENTS OF 1 VIAL IN NEBULIZER EVERY 4 TO 6 HOURS IF NEEDED 07/23 completed Not Available Not Available Not Available fluorouraci l 5 % topical cream APPLY TO FOOT TWICE DAILY FOR 1 MONTH 04/15 completed Not Available Not Available Not Available amoxicillin 500 mg tablet 06/09 completed Not Available Not Available Not Available amoxicillin 875 mg tablet 05/25 completed Not Available Not Available Not Available imiquimod 5 % topical cream packet APPLY TO SPOT ON RIGHT WILD LESION DAILY X 12 WEEKS active Not Available Not Available No t Available triamcinolo ne acetonide 0.1 % topical ointment APPLY TOPICALLY TWICE A DAY FOR 30 DAYS active Not Available Not Available No t Available montelukast 10 mg tablet TAKE 1 TABLET BY MOUTH EVERYDAY AT BEDTIME active Not Available Not Available No t Available estradiol 0.01% (0.1 mg/gram) vaginal cream INSERT 0.5 G EVERY DAY BY VAGINAL ROUTE FOR 85 DAYS. active Not Available Not Available No t Available letrozole 2.5 mg tablet TAKE 1 TABLET BY MOUTH EVERY DAY 05/25 completed Not Available Not Available Not Available fluticasone propionate 50 mcg/actuati on nasal spray,suspe nsion USE 2 SPRAYS IN EACH NOSTRIL DAILY active Not Available Not Available No t Available doxycycline hyclate 100 mg tablet TAKE ONE TABLET BY MOUTH TWICE DAILY X 5 DAYS WITH FOOD AND WATER. 04/15 completed Not Available Not Available Not Available levalbutero l HFA 45 mcg/actuati on aerosol inhaler TAKE TWO PUFFS EVERY 4 HOURS NEEDED active Not Available Not Available No t Available Asmanex Twisthaler 220 mcg/actuati on(60 doses) breath activated inhalr INHALE 2 PUFFS DAILY 06/09 completed Not Available Not Available Not Available calcium active Not Available Not Avail able Not Available vitamin E active Not Available Not Ashlie ilable Not Available Fish Oil active Not Available Not Avai lable Not Available Nexium active Not Available Not Availa ble Not Available sodium fluoride 1.1 %-potassium nitrate 5 % dental paste active Not Available Not Available Not Available Spiriva Respimat 2.5 mcg/actuati on solution for inhalation INHALE 2 PUFFS BY MOUTH DAILY DIRECTED active Not Available Not Available No t Available Incruse Ellipta 62.5 mcg/actuati on powder for inhalation 07/23 completed Not Available Not Available Not Available Readi-Cat 2 2 % (w/v) oral suspension DRINK 1 BOTTLE MORNING OF, 2ND BOTTLE 1/2 HOUR BEFORE 05/25 completed Not Available Not Available Not Available Qvar RediHaler 80 mcg/actuati on HFA breath activated aerosol INHALE 2 PUFFS BY MOUTH AT BEDTIME. MAY INCREASE TO 2 PUFFS TWICE A DAY active Not Available Not Available No t Available Imvexxy Maintenance Pack 10 mcg vaginal insert Insert 1 vaginal insert twice a week by vaginal route for 90 days. 06/09 completed Not Available Not Available Not Available Paxlovid 300 mg (150 mg x 2)-100 mg tablets in a dose pack TAKE ALL 3 TABLETS BY MOUTH TAKEN TOGETHER TWICE DAILY BY MOUTH FOR 5 DAYS, WITH OR WITHOUT FOOD 07/23 completed Not Available Not Available Not Available Vitals Date Recorded Body temperature Body weight Body mass index (BMI) Body height Heart rate Systolic And Diastolic Provider Name and Address Organization Details Last Updated DateTime 0 97.7 [degF] 35875.8 9 g 31 kg/m2 158.75 cm 80 /min 118/65 mm[Hg] Isidra Knott in [facility], 0 10:12:29 Date Recorded Body weight Body mass index (BMI) Body height Heart rate Systolic And Diastolic Provider Name and Address Organization Details Last Updated DateTime 05/30/2021 09403.85 g 31.9 kg/m2 158.75 cm 70 /min 129/74 mm[Hg] Mehreen Knott in [facility], 05/30/2021 09:20:59 Date Recorded Body weight Body mass index (BMI) Body height Body temperature Heart rate Systolic And Diastolic Provider Name and Address Organization Details Last Updated DateTime 2 73300.7 g 30.6 kg/m2 158.75 cm 97.4 [degF] 72 /min 122/61 mm[Hg] Malgorzata Knott in [facility], 2 14:33:42 Date Recorded Body height Heart rate Body mass index (BMI) Body weight Systolic And Diastolic Provider Name and Address Organization Details Last Updated DateTime 07/23/2023 158.75 cm 67 /min 31.5 kg/m2 76906.66 g 127/64 mm[Hg] Malgorzata Knott in [facility], 07/23/2023 14:40:06 Date Recorded Heart rate Body temperature Body weight Body mass index (BMI) Body height Systolic And Diastolic Provider Name and Address Organization Details Last Updated DateTime 4 72 /min 98.1 [degF] 26672.4 4 g 29.6 kg/m2 165.1 cm 138/63 mm[Hg] Mehreen Knott in [facility], 4 10:17:44 Social History Question Answer Notes LastModified by Organizat ion Details LastModified Time Tobacco Smoking Status Former Smoker Not Available [facility] 10/02/2020 03:19:42 How Many Years Have You Consumed Alcohol? 40 Information not available 08/11/2024 What Is Your Level Of Caffeine Consumption? Moderate Information not available 07/23/2023 In The 14 Days Before Symptom Onset, Have You Had Close Contact With A Laboratory-confirm ed COVID-19 While That Case Was Ill? No Information n ot available 06/09/2022 In The 14 Days Before Symptom Onset, Have You Had Close Contact With A Person Who Is Under Investigation For COVID-19 While That Person Was Ill? No Information not available 06/09/2022 Have You Been To An Area Known To Be High Risk For COVID-19? No Information not available 06/09/2022 What Type Of Diet Are You Following? REGULAR [id number] Information n ot available 10/02/2020 Which Illicit Or Recreational Drugs Have You Used? No [id number] Information not available 10/02/2020 Do You Reside In Or Have You Traveled To An Area Where Ebola Virus Transmission Is Active? No [id number] Information not available 10/02/2020 Education 2 Year College Information not available 12/04/2016 Who Is Your Employer? Retired Information not available 06/09/2022 How Many Days In The Past Year Have You Had A Heavy Drinking Consumption (4+ Female, 5+ Male)? 0 Information no t available 12/04/2016 Are There Any Guns Present In Your Home? No Information not available 06/09/2022 High Number Of Sexual Partners Yes Information not available 12/04/2016 To Which Gender Do You Self-identify? Female Information n ot available 12/04/2016 Marital Status Informatio n not available 12/04/2016 What Was The Date Of Your Most Recent Tobacco Screening? 08/11/2024 Information not available 08/11/2024 What Is Your Relationship Status? Information not available 06/09/2022 Are You Sexually Active? Yes [id number] Information not available 10/02/2020 How Much Tobacco Do You Smoke? No [id number] Information not available 10/02/2020 General Stress Level Low Information not available 12/04/2016 How Many Years Have You Smoked Tobacco? 20 [id number] Information not available 10/02/2020 Have You Recently (within The Last 12 Weeks, Or During A Current ) Traveled To Or Lived In A Zika-affected Area? No Information not available 12/04/2016 How Many Days In The Past Year Have You Consumed 4 Or More Drinks? -1 Information not available 08/11/2024 Sex: Female Functional Status Question Answer Note LastModified by Organizat ion Details LastModified Time Do you use any illicit or recreational drugs? No Information not available 06/09/2022 Do you or have you ever used any other forms of tobacco or nicotine? No Information not available 06/09/2022 What is your level of alcohol consumption? Occasional [id number] Information not available 10/02/2020 Do you or have you ever used smokeless tobacco? Never used smokeless tobacco [id number] Information not available 10/02/2020 Are you currently employed? No Information not available 06/09/2022 Do you or have you ever used e-cigarettes or vape? Never used electronic cigarettes [id number] Information not available 10/02/2020 What is your exercise level? Occasional [id number] Information not available 10/02/2020 Mental Status Question Answer Note LastModified by Organization D etails LastModified Time Do you feel stressed (tense, restless, nervous, or anxious, or unable to sleep at night)? [id number] Information not available 06/09/2022 Family History Relationship Description Onset Age of this Age Resolved Age Notes LastModified by Organization Details LastModified Time Sister Malignant tumor of breast 55 dcis stage 0 [email or web address] Not available 12/04/2016 11:17:05 Mother Malignant tumor of breast 64 went to bones. [email or web address] Not available 12/04/2016 11:17:05 Medical History Condition Response Anesthesia complications N High Blood Pressure N Candidate for MyRisk panel Y Autoimmune Condition N Thyroid Problems N Kidney or Bladder Problems N GI Problems N Lung Disease N Depression N Defects or Inherited Disease N History of Ovarian Cancer N Anemia N History of Breast Cancer N ZABRINA exposure N BRCA testing in past Y Osteopenia N Psychiatric Illness N Anxiety Disorder N Diabetes N Arthritis Y Headaches or Migraines Y Infertility N Asthma Y History of Cancer N Endometriosis N Hepatitis N Heart Disease N Hypertension N Osteoporosis N Gynecological History Statement/Question Response If Post Menopausal, Age at Menopause 52 Age at Menarche 18 Most Recent Mammogram 10/17/2023 Age at First Child 38 Most Recent Bone Density 11/30/2012 Obstetrics History GPAL:G 3 P 1 0 2 1 Type Value Full Term 1 Spontaneous 2 Living 1 Total 3 Immunizations Vaccine Type Date Status Note Provider Gerry e and Address Organization Details Recorded Time Influenza, split virus, quadrivalent, preservative 6 completed ALECIA Matute in [facility], 12/04/2016 11:15:47 Influenza, split virus, quadrivalent, preservative 7 completed ALECIA Matute in [facility], 03/12/2018 13:10:41 Influenza, split virus, quadrivalent, preservative 8 completed Mehreen Meczywor null, [place] [facility], 04/15/2019 09:26:06 Influenza, split virus, quadrivalent, preservative 9 completed Isidra Couch null, [place] - [facility], 05/25/2020 10:14:31 COVID-19, mRNA, LNP-S, PF, 30 mcg/0.3 mL dose 1 completed Mehreen Meczywor null, [place] - [facility], 08/11/2024 10:19:58 zoster recombinant 2 completed Mehreen Meczywor null, [place] - [facility], 08/11/2024 10:19:58 zoster recombinant 2 completed Mehreen Meczywor null, [place] - [facility], 08/11/2024 10:19:58 COVID-19, mRNA, LNP-S, PF, 30 mcg/0.3 mL dose 1 completed Mehreen Meczywor null, [place] - [facility], 08/11/2024 10:19:58 COVID-19, mRNA, LNP-S, PF, 30 mcg/0.3 mL dose, faye-sucrose 2 completed Mehreen Meczywor null, [place] - [facility], 08/11/2024 10:19:58 COVID-19, mRNA, LNP-S, bivalent, PF, 50 mcg/0.5 mL or 25mcg/0.25 mL dose 2 completed Mehreen Meczywor null, [place] - [facility], 08/11/2024 10:19:58 pneumococcal polysaccharide PPV23 1 completed Mehreen Meczywor null, [place] - [facility], 08/11/2024 10:19:58 Tdap 3 completed Mehreen Meczywor null, [place] - [facility], 08/11/2024 10:19:58 zoster live 2 completed ALECIA Matute in [facility], 08/11/2024 10:19:58 Influenza, split virus, quadrivalent, PF 2 completed ALECIA Matute in [facility], 08/11/2024 10:19:58 Past Encounters Encounter ID Performer Location Encounter Start Date Encounter Closed Date Diagnosis/Indication Diagnosis SNOMED-CT Code Diagnosis ICD10 Code Diagnosis Note [id number] MD SHANTE Johnston MD [address] [facility] [place] [address] 12/04/2016 10:58:54 12/04/2016 13:32:41 Specialized medical examination 56724207 Z01.419 Screening for malignant neoplasm of rectum 229259340 Z12.12 Screening mammography 24 002701 Z12.31 Pain in female pelvis 42 4213070 R10.2 Lichen scl erosus et atrophicus 39135746 L90.0 Atrophic vaginitis 53695 000 N95.2 [id number] MD SHANTE Johnston MD [address] [facility] [place] [address] 12/25/2016 09:04:58 12/25/2016 12:57:00 Family history of breast cancer 473557823 Z80.3 [id number] MD SHANTE Johnston MD [address] [facility] [place] [address] 03/12/2018 12:58:28 03/12/2018 15:05:06 Specialized medical examination 96382224 Z01.419 Screening for malignant neoplasm of rectum 956800683 Z12.12 Screening mammography 24 546269 Z12.31 Atrophic vaginitis 68304 000 N95.2 Lichen scl erosus et atrophicus 43143710 L90.0 [id number] MD SHANTE Johnston MD [address] [facility] [place] [address] 04/15/2019 09:08:36 04/15/2019 10:57:20 Specialized medical examination 22642198 Z01.419 Screening for malignant neoplasm of rectum 695239832 Z12.12 Screening mammography 24 992647 Z12.31 [id number] MD SHANTE Johnston MD [address] [place] [address] [place] [address] 05/25/2020 10:03:32 05/25/2020 11:54:06 Specialized medical examination 80807413 Z01.419 Screening for malignant neoplasm of rectum 293219498 Z12.12 Screening mammography 24 186359 Z12.31 Atrophic vaginitis 93594 000 N95.2 Lichen scl erosus et atrophicus 68988707 L90.0 [id number] MD SHANTE Johnston MD [address] [place] [address] [place] [address] 05/30/2021 09:16:15 05/30/2021 12:06:57 Specialized medical examination 65884576 Z01.419 Screening for malignant neoplasm of rectum 347756439 Z12.12 Screening mammography 24 460445 Z12.31 Atrophic vaginitis 25212 000 N95.2 Lichen scl erosus et atrophicus 55463278 L90.0 [id number] MD SHANTE Johnston MD [address] [place] [address] [place] [address] 06/09/2022 14:30:01 06/09/2022 15:45:30 Specialized medical examination 31743795 Z01.419 Screening for malignant neoplasm of rectum 599994214 Z12.12 Screening mammography 24 546571 Z12.31 Genital li tucker sclerosus 745728390 L90.0 Atrophic vaginitis 34152 000 N95.2 [id number] MD SHANTE Johnston MD [address] [place] [address] [place] [address] 07/23/2023 14:38:15 07/23/2023 15:56:11 Specialized medical examination 40650589 Z01.419 Screening for malignant neoplasm of rectum 856026159 Z12.12 Screening mammography 24 250918 Z12.31 Atrophic vaginitis 90323 000 N95.2 Lichen scl erosus et atrophicus 42434282 L90.0 [id number] MD SHANTE Johnston MD [address] [place] [address] 08/11/2024 10:14:55 08/11/2024 12:12:09 Atrophic vaginitis 32644024 N95.2 Lichen scl erosus et atrophicus 46450151 L90.0 Specialize d medical examination 55159140 Z01.419 Screening for malignant neoplasm of rectum 794643536 Z12.12 Screening mammography 24 960280 Z12.31 Health Concerns Section Related Observation LastModified by Organization Detai ls LastModified Time None Recorded Concern Status LastModified by Organization Details LastModified Time None Recorded Advance Directives Directive None Recorded Payers Insurance Date Sequence Insurance Name Policy Number Policy Vidal Covered Member ID Vidal Member ID Guarantor Name 08/08/[address] [place] [address] [id number] Charlie Carlson [id number] Virgen Jaime Notes Date Note Type Note Provider Name and Address Organization Details Recorded Time 05/25/2020 text/html She is here for annual exam, doing well with aristocort for lichen sclerosis, elects to continue, and estradiol vaginal cream for atrophy as well. Shante Bergeron MD [address], [place], [address], [employer] [facility], 05/25/2020 10:35:59 05/30/2021 text/html She is here for annual exam, doing well with aristocort for lichen sclerosis, elects to continue, and estradiol vaginal cream for atrophy as well. She only uses the E2 cream twice a week, scant amounts, a tube lasts more than a year. Mother and sister both had breast cancer, neither had BRCA testing. She was taking Letrozole medication for a [address] Ford, tyo decrease her risks of development of breast cancer, due to her family history, is finished wiht that now. She had BRCA testing in 2017, was negative. . She was getting annual breast MRI due to her [place] number. Shante Bergeron MD [address], [place], [address], [place] [facility], 05/30/2021 09:51:40 06/09/2022 text/html She is here for annual exam, has not been using the Aristocort or the estradiol cream regularly, is using the cream once a week or so, and has dyspareunia and tenderness the next day afterward when she urinates it stings . note from 2020: She is here for annual exam, doing well with aristocort for lichen sclerosis, elects to continue, and estradiol vaginal cream for atrophy as well. She only uses the E2 cream twice a week, scant amounts, a tube lasts more than a year.Mother and sister both had breast cancer, neither had BRCA testing. She was taking Letrozole medication for a [address] Ford, mally decrease her risks of development of breast cancer, due to her family history, is finished wiht that now.She had BRCA testing in 2017, was negative.. She was getting annual breast MRI due to her [place] number.Continue Aristocort for lichen sclerosis.She is advised to increase from twice a week on the E2 cream to 3 to 4 times a week,.at least, as she is very atrophic this year, she will do so.She wants to try Imvexxy rx as her estradiol cream is expensive, will cla lit in so she can see how much it may cost. Shante Bergeron MD [address], [place], [address], [place] - [facility], 06/09/2022 15:00:07 07/23/2023 text/html She is here for annual, last filled the estradiol cream 06/20, the Aristocort 06/19. She still has dyspareunia, But maybe I'm not using the creams enough. Note from 2021: She is here for annual exam, has not been using the Aristocort or the estradiol cream regularly, is using the cream once a week or so, and has dyspareunia and tenderness the next day afterward when she urinates it stings . Shante Bergeron MD [address], [place], [address], [place] [facility], 07/23/2023 15:05:01 08/11/2024 text/html She is here for annual, doing well, using the 2 creams regularly, the Aristocort and the estradiol, and with good benefit. Note from 2022: She is here for annual, last filled the estradiol cream 06/20, the Aristocort 06/19. She still has dyspareunia, But maybe I'm not using the creams enough. Shante Bergeron MD [address] [facility],[address], [place], [address], [place] - [facility], 08/11/2024 10:42:34 OBGyn Episode No OBEpisode recorded.
== END 2025-06-13 07:51 | disposition home or self-care (01) ==
LOC: HO.MAMMO 07:50
PROVIDERS: PCP Internal Medicine; Visit Provider Surgery
DX: Z80.3 Family history of malignant neoplasm of breast (principal); Z91.89 Other specified personal risk factors, not elsewhere classified
CPT/HCPCS: 76641

== ENCOUNTER → 2025-06-13 07:54 | Outpatient (BNV) | payer OTHER, SELFPAY | PROVIDERS: PCP Internal Medicine; Visit Provider Internal Medicine | DX: Z80.3 Family history of malignant neoplasm of breast (principal) | CPT/HCPCS: 76641 ==

== ENCOUNTER 2025-09-08 09:45 | Outpatient (AMB) | payer OTHER, SELFPAY ==
--- NOTE | 2025-09-08 09:56 | MHC.OFFVIS ---
Vital Signs 09/08/25 10:02 Height 56 ft Weight 182 lb BMI 0.3 BP 150/89 H Blood Pressure Location Lt brachial Position Sitting Pulse 81 Intake Visit Reasons: Breast exam, 1 year follow up Intake Note: Patient is seen in office for yearly breast exam. Pt c/o: denies any concerns or changes regarding the breast us:06/13/25 mm sched: 11/09/25 @ 2pm Criminal Court Judge: Criminal Court Judge Present Accompanied by: Self / Same As Patient Allergies sulfamethoxazole Allergy (Unknown, Verified 09/08/25 10:01) rash Latex Allergy Allergy (Unknown, Uncoded 09/08/25 10:01) itching, rash HPI Comments Details: 65-year-old female presenting for a follow-up high risk breast cancer examination. She has a previous patient of Dr. Ford and Dr. Alamo determined to have a remaining lifetime risk of breast cancer of 34%, well above the 20% threshold. She has a family history of breast cancer in her mother at the age of 65 and sister at the age of 55. Her sister is alive and well and was diagnosed with ductal carcinoma in situ. Her sister was recently diagnosed recurrent invasive carcinoma ER/TX negative, HER2 Carleen positive. She underwent chemotherapy and mastectomy. The patient was followed with yearly breast MRIs alternating every 6 months mammograms although she wishes to hold off on MRIs for now. She was placed on letrozole by Dr. Steven Hamlin for 5 years and completed this treatment on March 2020. Breast MRI in 2018 showed enlargement of an enhancing area in the right breast in the subareolar region visible only by MRI. A MR guided biopsy was performed on 12/18/2017 revealed benign breast tissue with stromal fibrosis, apocrine metaplasia and microcysts. A mammogram performed on 09/25/2020 demonstrated new clustered microcalcifications in the retroareolar area of the right breast around the region of the prior MR guided biopsy. Additional views on 10/01/2020 demonstrated 10 grouped microcalcifications in this area. The patient opted for stereotactic guided core biopsy which was performed 10/10/2020. This revealed benign breast parenchyma with dense stromal fibrosis, apocrine metaplasia, dilated duct, hemosiderin-laden macrophages and stromal calcifications; negative for atypia or malignancy. Biopsy clip from the MRI guided biopsy was noted within the specimen. Her most recent mammogram dated 11/03/2024 revealed no mammographic evidence of malignancy (BI-RADS 2). Bilateral screening ultrasounds performed on 06/13/2025 revealed no suspicious findings in either breast (BI-RADS 2). This was performed as an alternative to breast MRI. She feels well and denies any ongoing breast symptoms. 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 COPD (chronic obstructive pulmonary disease) Asthma Family History Mother Breast cancer, Onset Age: 65 Sister Breast cancer, Onset Age: 55 Social History Alcohol intake: current Alcohol intake frequency: holidays/special occasions only Alcohol type: wine Review of Systems Const All systems reviewed & are unremarkable except as noted in HPI and below Card Denies chest pain Denies nipple discharge Skin/Breast Denies breast swelling, Denies breast skin changes, Denies breast pain, Denies breast mass, Denies change in breast shape and Denies nipple discharge Darien/Lymph Denies lymphadenopathy Physical Exam Const General: comfortable, no acute distress and well developed Nutritional Appearance: well nourished Orientation/consciousness: patient oriented x3 Limitations: no limitations Neck Neck: Yes no JVD Lymphatic: no lymphadenopathy noted Chest Other: Left breast: No skin change, no nipple retraction, no nipple discharge, no palpable mass, no enlarged lymph nodes. Right breast: No skin change, no nipple retraction, no nipple discharge, no palpable mass, no enlarged lymph nodes Resp Effort & Inspection: normal respiratory effort GI Inspection: Yes normal to inspection Skin General skin exam: no rashes or lesions noted Neuro General: patient oriented x3 Extrem General: Yes no clubbing, cyanosis or edema Assessment & Plan Assessment & Plan (1) At high risk for breast cancer: Code(s): Z91.89 - Other specified personal risk factors, not elsewhere classified Category: Medical (2) Family history of breast cancer: Code(s): Z80.3 - Family history of malignant neoplasm of breast Category: Medical Plan 65-year-old female presenting with a strong family history of breast cancer in both her mother and sister found to have an abnormal area of microcalcification in the right breast at the site of a previous MR guided biopsy just below the nipple. She subsequently underwent stereotactic guided core biopsy which revealed benign breast tissue. Findings were consistent with scar from previous biopsy and included the biopsy clip from the MR guided biopsy as well. Patient denies any ongoing breast symptoms in generally feels well. Her most recent mammogram dated 11/03/2024 revealed no mammographic evidence of malignancy (BI-RADS 2). Bilateral screening ultrasounds of 06/13/2025 revealed no suspicious findings in either breast (BI-RADS 2). She is scheduled for a follow-up mammogram on 11/09/2025. Examination today revealed no suspicious findings in either breast. She will follow up in 1 year for routine breast examination. Orders: Orders US breast LT complete 06/14/26 Z80.3 - Family history of malignant neoplasm of breast, Z91.89 - Other specified personal risk factors, not elsewhere classified US breast RT complete 06/14/26 Z80.3 - Family history of malignant neoplasm of breast, Z91.89 - Other specified personal risk factors, not elsewhere classified Coding Level of Care Code Est Pt Level 3 (79468) Complex EM visit Add On G2211 Diagnoses At high risk for breast cancer Z91.89 Family history of breast cancer Z80.3
[2025-09-08 10:02] VITALS: BP 150/89; PULSE 81
--- OUTSIDE RECORDS SUMMARY | 2025-09-08 10:28 | XMS_ITS ---
Author Name [facility] Organization Unknown Encounters Encounter Type Encounter Reason Primary Diagnosis Location Date Ambulatory [facility] 02/10/2025
--- OUTSIDE RECORDS SUMMARY | 2025-09-08 10:28 | XMS_ITS | Data Portability ---
Author Organization [place] - [facility],, SHANTE BERGERON MD Address [address] [address] Care Team Providers Care Cabinet Assembler Name Role Phone JESSA SNYDER Primary Care Provider Assessment No assessment recorded. Plan of Treatment Reminders Order Date Submit Date Provider Last Modified By Organization Details Last Modified Time Details Appointments ANNUAL EXAM 2024 08:40A M Shante Bergeron MD Not available Not available Not available Lab cytology report, thin prep, smear or scraping , cervical or vaginal 2023 024 [facility] (Centralized Electronic Ordering - All Locations), Patient Can Go To The Location Of Their Choice, [id number] 08/15/2024 18:06:01 hemoglob in, gastroin testinal , stool 2023 024 [email or web address] 1 In-Office Order, Internal Use Only DO Not Attach Compendium DO Not Attach Compendium, Do Not Delete/merge, [id number] 08/11/2024 10:41:52 pap test, thinprep , cervical 2022 023 [email or web address] [facility] (Centralized Electronic Ordering - All Locations), Patient Can Go To The Location Of Their Choice, [id number] 08/06/2023 07:31:08 fecal occult blood, stool 2022 023 [email or web address] 1 In-Office Order, Internal Use Only DO Not Attach Compendium DO Not Attach Compendium, Do Not Delete/merge, [id number] 07/23/2023 15:02:52 pap test, thinprep , cervical 2021 022 [facility], Cytopathology Service, [address] [place], [address], 06/23/2022 07:45:40 fecal occult blood, stool 2021 022 [email or web address] 1 In-Office Order, Internal Use Only DO Not Attach Compendium DO Not Attach Compendium, Do Not Delete/merge, [id number] 06/09/2022 14:57:38 pap test, thinprep , cervical 2020 021 [facility], Cytopathology Service, [address] [place], [address], 06/06/2021 07:40:07 fecal occult blood, stool 2020 021 [email or web address] 1 In-Office Order, Internal Use Only DO Not Attach Compendium DO Not Attach Compendium, Do Not Delete/merge, [id number] 05/30/2021 09:49:25 pap test, thinprep , cervical 2019 020 [facility], Cytopathology Service, [address] [place], [address], 06/01/2020 07:35:52 fecal occult blood, stool 2019 020 [facility], Internal Use Only DO Not Attach Compendium DO Not Attach Compendium, Do Not Delete/merge, [id number] 06/01/2020 07:35:52 Referral None recorded . Procedures None recorded . Surgeries None recorded . Imaging MAMMO, screenin g, digital, bilatera l - Breast Aspirati on and/or Biopsy if needed 2023 024 [facility] (Imaging), [address] [place] [address], [address], 11/03/2024 14:23:20 MAMMO, screenin g, digital, bilatera l - Breast Aspirati on and/or Biopsy if needed 2022 023 [facility] (Imaging), [address] [place] [address], [place], [address], 07/18/2024 07:35:49 MAMMO, screenin g, digital, bilatera l 2021 022 [place], [address], 05/25/2025 07:16:39 MAMMO, screenin g, digital, bilatera l 2020 021 [place], [address], 05/26/2022 07:50:27 MAMMO, screenin g, digital, bilatera l 2019 020 [facility] (Mammo), [address] [place] [address] [place], [address], 05/20/2021 07:33:30 Medication Orders estradio l 0.01% (0.1 mg/gram) vaginal cream 2023 024 [facility]/Pharmacy #0084, [address] [place], [address], 08/11/2024 10:41:52 triamcin olone acetonid e 0.1 % topical ointment 2023 024 [facility] #0084, [address] [place], [address], 08/11/2024 10:41:55 estradio l 0.01% (0.1 mg/gram) vaginal cream 2022 023 [facility] #0084, [address] [place], [address], 07/23/2023 15:02:50 triamcin olone acetonid e 0.1 % topical ointment 2022 023 [facility] #0084, [address] [place], [address], 07/23/2023 15:03:30 estradio l 0.01% (0.1 mg/gram) vaginal cream 2021 022 [facility] #0084, [address] [place], [address], 06/09/2022 14:57:42 Imvexxy Maintena nce Pack 10 mcg vaginal insert 2020 021 [facility]armacy #0084, [address] [place], [address], 06/09/2022 14:34:24 triamcin olone acetonid e 0.1 % topical ointment 2020 021 [facility] #0084, [address] [place], [address], 05/30/2021 09:45:48 estradio l 0.01% (0.1 mg/gram) vaginal cream 2019 020 [facility]armacy #0084, [address] [place], [address], 05/25/2020 10:24:58 triamcin olone acetonid e 0.1 % topical ointment 2019 020 [facility] #0084, [address] [place], [address], 05/25/2020 10:35:38 Patient TargetsNo targets recorded. Patient Instructions Encounter Date Encounter Id Patient Instructions Last Modified By Organization Details Last Modified Time 05/25/2020 [id number] atrophic vaginit is: care instructions Not available [...] questions answered. Not available 05/25/2020 10:25:15 05/30/2021 [id number] atrophic vaginit is: care instructions Not available [...] the breast. Not available 05/30/2021 09:51:01 06/09/2022 [id number] atrophic vaginit is: care instructions Not available 06/09/2022 14:57:38 learning about healthy weight Not available 06/09/2022 14:57:38 She is here [...] the breast. Not available 06/09/2022 14:59:38 07/23/2023 [id number] learning about healthy weight Not available 07/23/2023 [...] the breast. Not available 07/23/2023 15:04:28 08/11/2024 [id number] learning about healthy weight Not available 08/11/2024 [...] Abnormal Flag Note LastModifiedBy Organization Detail LastModifiedTime 05/30/2005/30/2021 fecal occul t blood , stool Occult Blood negati ve Not Available In-Office Order Internal Use Only DO Not Attach Compendium DO Not Attach Compendium, Do Not Delete/merge, [id number] 05/30/2021 09:23:01 05/25/2005/25/2020 fecal occul t blood , stool Occult Blood negati ve Not Available In-Office Order Internal Use Only DO Not Attach Compendium DO Not Attach Compendium, Do Not Delete/merge, [id number] 05/25/2020 10:16:49 05/25/2005/25/2020 pap, LB [id number] ThinP rep Pap, Image d: NEGAT MINERVA FOR SQUAM OUS INTRA EPITH ELIAL LESIO N AND MALBRO INDIO . Raffy lemus , CT( CP) (Case elect erick dolly sabina d 05 28 2020) ADEQU ACY: Satis facto ry Endoc ervic al/tr ansfo rmati on zone compo nent absen t. SOURC E: ThinP rep Pap HPV IF ASCUS , Cervi john, Image d CLINI JOHN INFOR MATIO N: HPV If Diagn osis of ASCUS . LPS neg, menop ause, z12.4 , z01.4 19 Not Available [facility], Cytopathology Service [address] [place], [address], 05/28/2020 14:17:52 05/30/2005/30/2021 PAP1C ASE [id number] ThinP rep Pap, Image d: NEGAT MINERVA FOR SQUAM OUS INTRA EPITH ELIAL LESIO N AND MALIG INDIO . Audie flores , CT( CP) (Case [...] NEG [Z12. 4, Z01.4 19] Not Available [facility], Cytopathology Service [address] [place], [address], 05/31/2021 14:51:22 06/09/20 22 06/09/2022 PAP1C ASE [id number] ThinP rep Pap, Image d: NEGAT MINERVA FOR SQUAM OUS INTRA EPITH ELIAL LESIO N AND MALIG INDIO . Melanie Calderon il , CT( CP) [...] lps 1 neg, [Z01. 419] Not Available [facility], Cytopathology Service [address] [place] [address], [address], 06/16/2022 12:41:50 06/09/20 22 06/09/2022 fecal occul t blood , stool Occult Blood negati ve Not Available In-Office Order Internal Use Only DO Not Attach Compendium DO Not Attach Compendium, Do Not Delete/merge, [id number] 06/09/2022 14:57:28 07/23/20 23 07/23/2023 [facility] CYTOL OGY results Meghan nt Name: VIRGEN CARLSON nt : 962 (Age: 63) Lab Acces salud #: [id number] Colle ction Date: 2022 Acces salud Date: 2022 Sign Out Date: 023 Tissu e Sourc e: 1: THINP REP DEDICATED REGIONAL DRIVER PAP TEST, CERVI JOHN: Final Diagn osis: NEGAT MINERVA FOR INTRA EPITH ELIAL LESIO N OR MALIG INDIO . Satis facto ry for evalu ation . Endoc ervic al/tr ansfo rmati on zone prese nt. Clini john Histo ry: Date of Last Menst rual Perio d: not avail able Menst rual Histo ry: Post- menop ausal Contr acept minerva Histo ry: not avail able Ancil aydin Testi ng: HPV (ASCU S) Case image d by the Thin rep Imagi ng Syste m with analia man or vincent allen Perfo rmed at [facility] ate Refer ence [facility] Cyt[facility], [address] [place] Clini john Histo ry (othe r): Z01.4 19, routi ne scree n, LPS neg Phone #: [phone], On-Ca ll Patho logis t: [address] Not Available [facility] (Centralized Electronic Ordering - All Locations) Patient Can Go To The Location Of Their Choice, [address] 08/04/2023 10:14:11 07/23/20 23 07/23/2023 fecal occul t blood , stool Occult Blood negati ve Not Available In-Office Order Internal Use Only DO Not Attach Compendium DO Not Attach Compendium, Do Not Delete/merge, [id number] 07/23/2023 14:38:56 08/11/20 24 08/15/2024 IGP, RFX APTIM A HPV ASCU diagnosis: Alessandra t NEGAT MINERVA FOR INTRA EPITH ELIAL LILA Ponce OR ROSALVA BORJAS . Not Available [facility] ([facility]) [address] [facility], [place], [address], 08/15/2024 18:06:01 08/11/20 24 08/15/2024 IGP, RFX APTIM A HPV ASCU specimen adequacy: Commen t Satis facto ry for evalu ation . Not Available [facility] ([facility]) [address] [facility], [place], [address], 08/15/2024 18:06:01 08/11/20 24 08/15/2024 IGP, RFX APTIM A HPV ASCU clinician provided ICD10: Commen t Giovanni01.4 19 Not Available [facility] ([facility]) [address] [facility], [place], [address], 08/15/2024 18:06:01 08/11/20 24 08/15/2024 IGP, RFX APTIM A HPV ASCU performed by: Andrey Tariq (ASCP ) Not Available [facility] ([facility]) [address] [facility], [place], [address], 08/15/2024 18:06:01 08/11/20 24 08/15/2024 IGP, RFX APTIM A HPV ASCU . . Not Available [facility] ([facility]) [address] [facility], [place], [address], 08/15/2024 18:06:01 08/11/20 24 08/15/2024 IGP, RFX APTIM A HPV ASCU note: Alessandra watson The Pap smear is a scree [...] ts do occur . Not Available [facility] ([facility]) [address] [facility], [place], [address], 08/15/2024 18:06:01 08/11/20 24 08/15/2024 IGP, RFX APTIM A HPV ASCU test methodology: Alessandra watson This liqui d based ThinP rep(R ) pap test was scree daniel with the use of an image guide nissa danielson. Not Available [facility] ([facility]) [address] [facility], [place], [address], 08/15/2024 18:06:01 08/11/20 24 08/15/2024 IGP, RFX APTIM A HPV ASCU . Commen t The HPV DNA refle x crite jose were not met with this speci men resul t there fore, no HPV testi ng was perfo rmed. Not Available [facility] ([facility]) [address] [facility], [place], [address], 08/15/2024 18:06:01 08/11/20 24 08/11/2024 hemog lobin , gastr ointe kevin l, stool Occult Blood negati ve Not Available In-Office Order Internal Use Only DO Not Attach Compendium DO Not Attach Compendium, Do Not Delete/merge, [id number] 08/11/2024 10:24:04 11/03/20 24 11/03/2024 MAMMO , scree reva, digit al, bilat eral No observ ation record ed. [address] [place], [address], 11/03/2024 14:33:23 Result Notes None recorded. Problems Name Problem SNOMED Code Status Onset Date Resolution Date Notes Provider Name and Address Organization Details Recorded Time Family history of breast cancer 347081354 Active 2016 Mother and sister both had [...] getting annual breast MRI due to her [facility] k number. Shante Bergeron MD [address], [place], [address], [place] - [facility], 1 09:48:35 Lichen sclerosus et atrophicus Active 2016 one finger introitus Shante Bergeron MD [address], [place], [address], [place] [facility], 7 13:11:24 Atrophic vaginitis 26633760 Active 2016 Shante Bergeron MD [address] [facility],[address], [place], [address], [place] - [facility], 7 13:13:21 Chronic obstructiv e pulmonary disease 27919673 Active 2019 Isidra Couch [place] g[place] - [facility], 0 10:15:18 Problem Notes None recorded. Procedures Surgical History Date Name Laterality Status Provider Name and Address Organization Details Recorded Time 3 Most Recent Mammogram completed Mehreen Knott in [facility], 08/11/2024 10:23:37 3 Most Recent Bone Density completed Mehreen Knott in [facility], 12/04/2016 11:25:33 2 Dilation and Curettage completed Shante Bergeron MD [address] [facility],[address], [place], [address], [place] - [facility], 03/12/2018 13:38:30 1 Breast Biopsy completed Mehreen Knott in [facility], 05/30/2021 09:24:31 0 Dilation and Curettage completed Mehreen Knott in [facility], 12/04/2016 11:24:15 0 Other completed Mehreen Galvez [place] - [facility], 04/15/2019 09:27:39 8 Caesarean Section completed Mehreen Knott in [facility], 12/04/2016 11:21:07 Imaging Results None recorded. Procedure Notes None recorded. Medical Equipment None Reported. Allergies Allergen ID Allergen Name Allergen Category Reaction Reaction Severity Criticality Documentation Date Start Date Code Code System Note Provider Name and Address Organization Details Recorded Time 42341 Substance with sulfonami de structure and antibacte rial mechanism of action (substanc e) medicatio n hives Not available Not available 12/04/2016 22817 8003 SNOMED Mehreen gil [place] [facility], 7 11:14:19 Medications Name Sig Start Date [...] Details Last Updated DateTime 0 97.7 [degF] 11508.8 9 g 31 kg/m2 158.75 cm 80 /min 118/65 mm[Hg] Isidra Couch [place] - [facility], 0 10:12:29 Date Recorded Body weight Body mass index (BMI) Body height Heart rate Systolic And Diastolic Provider Name and Address Organization Details Last Updated DateTime 05/30/2021 60474.85 g 31.9 kg/m2 158.75 cm 70 /min 129/74 mm[Hg] Mehreen Knott in [facility], 05/30/2021 09:20:59 Date Recorded Body weight Body mass index (BMI) Body height Body temperature Heart rate Systolic And Diastolic Provider Name and Address Organization Details Last Updated DateTime 2 73133.7 g 30.6 kg/m2 158.75 cm 97.4 [degF] 72 /min 122/61 mm[Hg] Malgorzata Knott in [facility], 2 14:33:42 Date Recorded Body height Heart rate Body mass index (BMI) Body weight Systolic And Diastolic Provider Name and Address Organization Details Last Updated DateTime 07/23/2023 158.75 cm 67 /min 31.5 kg/m2 96195.66 g 127/64 mm[Hg] Malgorzata Knott in [facility], 07/23/2023 14:40:06 Date Recorded Heart rate Body temperature Body weight Body mass index (BMI) Body height Systolic And Diastolic Provider Name and Address Organization Details Last Updated DateTime 4 72 /min 98.1 [degF] 07758.4 4 g 29.6 kg/m2 165.1 cm 138/63 mm[Hg] Mehreen Knott in [facility], 4 10:17:44 Social History Question Answer Notes LastModified by Organizat ion Details LastModified Time Tobacco Smoking Status Former Smoker Not Available [facility] 10/02/2020 03:19:42 How Many Years Have [...] Type Of Diet Are You Following? REGULAR [id number] Information n ot available 10/02/2020 Which Illicit Or Recreational Drugs Have You Used? No [id number] Information not available 10/02/2020 Do You Reside In Or Have You Traveled To An Area Where Ebola Virus Transmission Is Active? No [id number] Information not available 10/02/2020 Education 2 Year [...] available 06/09/2022 Are You Sexually Active? Yes [id number] Information not available 10/02/2020 How Much Tobacco Do You Smoke? No [id number] Information not available 10/02/2020 General Stress Level Low Information not available 12/04/2016 How Many Years Have You Smoked Tobacco? 20 [id number] Information not available 10/02/2020 Have You Recently [...] is your level of alcohol consumption? Occasional [id number] Information not available 10/02/2020 Do you or have you ever used smokeless tobacco? Never used smokeless tobacco [id number] Information not available 10/02/2020 Are you currently employed? No Information not available 06/09/2022 Do you or have you ever used e-cigarettes or vape? Never used electronic cigarettes [id number] Information not available 10/02/2020 What is your exercise level? Occasional [id number] Information not available 10/02/2020 Mental Status Question Answer Note LastModified by Organization D etails LastModified Time Do you feel stressed (tense, restless, nervous, or anxious, or unable to sleep at night)? [id number] Information not available 06/09/2022 Family History Relationship Description Onset Age of this Age Resolved Age Notes LastModified by Organization Details LastModified Time Sister Malignant neoplasm of breast 55 dcis stage 0 [email or web address] Not available 12/04/2016 11:17:05 Mother Malignant neoplasm of breast 64 went to bones. [email or web address] Not available 12/04/2016 11:17:05 Medical History Condition Response Anesthesia complications N High Blood Pressure N Candidate for MyRisk panel Y Autoimmune Condition N Depression N Lung Disease N Defects or Inherited Disease N History of Ovarian Cancer N BRCA testing in past Y Anxiety Disorder N Arthritis Y Infertility N History of Cancer N Endometriosis N Kidney or Bladder Problems N Thyroid Problems N GI Problems N Anemia N History of Breast Cancer N ZABRINA exposure N Osteopenia N Psychiatric Illness N Diabetes N Headaches or Migraines Y Asthma Y Hepatitis N Heart Disease N Hypertension N [...] Immunizations Vaccine Type Date Status Note Provider Nam e and Address Organization Details Recorded Time Influenza, split virus, quadrivalent, preservative 6 completed Mehreen Meczywor null, [place] - [facility], 12/04/2016 11:15:47 Influenza, split virus, quadrivalent, preservative 7 completed Mehreen Meczywor null, [place] - [facility], 03/12/2018 13:10:41 Influenza, split virus, quadrivalent, preservative 8 completed Mehreen Meczywor null, [place] - [facility], 04/15/2019 09:26:06 Influenza, split virus, quadrivalent, preservative 9 completed Isidra Couch null, [place] - [facility], 05/25/2020 10:14:31 COVID-19, mRNA, LNP-S, PF, 30 mcg/0.3 mL dose 1 completed Mehreen Meczywor null, [place] - [facility], 08/11/2024 10:19:58 zoster recombinant 2 [...] Mehreen Meczywor null, [place] - [facility], 08/11/2024 10:19:58 Tdap 3 completed Mehreen Meczywor null, [place] - [facility], 08/11/2024 10:19:58 zoster live 2 completed Mehreen Meczywor null, [place] - [facility], 08/11/2024 10:19:58 Influenza, split virus, quadrivalent, PF 2 completed Mehreen Meczywor null, [place] - [facility], 08/11/2024 10:19:58 Past Encounters Encounter ID Performer Location Encounter Start Date Encounter Closed Date Diagnosis/Indication Diagnosis SNOMED-CT Code Diagnosis ICD10 Code Diagnosis IMO Codes Diagnosis Note [id number] MD SHANTE Johnston MD [address] [place] [phone] 12/04/2016 10:58:54 12/04/2016 13:32:41 Specialized medical examination 42730475 Z01.419 Screening for malignant neoplasm of rectum 935050708 Z12.12 Screening mammography 24 148403 Z12.31 Pain in female pelvis 42 8149416 R10.2 Lichen scl erosus et atrophicus 68263013 L90.0 Atrophic vaginitis 85998 000 N95.2 [id number] MD SHANTE Johnston MD [address] [place], [place] [address]E [address] [place] [phone] 12/25/2016 09:04:58 12/25/2016 12:57:00 Family history of breast cancer 637923879 Z80.3 [id number] MD SHANTE Johnston MD [address] [place] [address] [place] [phone] 03/12/2018 12:58:28 03/12/2018 15:05:06 Specialized medical examination 32123143 Z01.419 Screening for malignant neoplasm of rectum 176740077 Z12.12 Screening mammography 24 888793 Z12.31 Atrophic vaginitis 84887 000 N95.2 Lichen scl erosus et atrophicus 43939082 L90.0 [id number] MD SHANTE Johnston MD [address] [place] [address] [place] [facility] [address] 04/15/2019 09:08:36 04/15/2019 10:57:20 Specialized medical examination 91938582 Z01.419 Screening for malignant neoplasm of rectum 428426148 Z12.12 Screening mammography 24 957618 Z12.31 [id number] MD SHANTE Johnston MD [address] [place] [address] [place] [facility] [address] 05/25/2020 10:03:32 05/25/2020 11:54:06 Specialized medical examination 53005168 Z01.419 Screening for malignant neoplasm of rectum 199630792 Z12.12 Screening mammography 24 434563 Z12.31 Atrophic vaginitis 81441 000 N95.2 Lichen scl erosus et atrophicus 78521512 L90.0 [id number] MD SHANTE Johnston MD [address] [place] [address] [place] [facility] [address] 05/30/2021 09:16:15 05/30/2021 12:06:57 Specialized medical examination 53497025 Z01.419 Screening for malignant neoplasm of rectum 787888392 Z12.12 Screening mammography 24 547279 Z12.31 Atrophic vaginitis 08054 000 N95.2 Lichen scl erosus et atrophicus 32598534 L90.0 [id number] MD SHANTE Johnston MD [address] [place] [address] [place] [facility] [address] 06/09/2022 14:30:01 06/09/2022 15:45:30 Specialized medical examination 59107507 Z01.419 Screening for malignant neoplasm of rectum 726855805 Z12.12 Screening mammography 24 270302 Z12.31 Genital li tucker sclerosus 969668461 L90.0 Atrophic vaginitis 43085 000 N95.2 [id number] MD SHANTE Johnston MD [address] [place] [address] [place] [address] 07/23/2023 14:38:15 07/23/2023 15:56:11 Specialized medical examination 98776799 Z01.419 Screening for malignant neoplasm of rectum 624514494 Z12.12 Screening mammography 24 977170 Z12.31 Atrophic vaginitis 88100 000 N95.2 Lichen scl erosus et atrophicus 42137459 L90.0 [id number] MD SHANTE Johnston MD [address] [facility] [place] [address] 08/11/2024 10:14:55 08/11/2024 12:12:09 Atrophic vaginitis 21600299 N95.2 Lichen scl erosus et atrophicus 81082676 L90.0 Specialize d medical examination 07467833 Z01.419 Screening for malignant neoplasm of rectum 128327278 Z12.12 Screening mammography 24 250255 Z12.31 Health Concerns Section Related Observation LastModified by Organization Detai ls LastModified Time None Recorded Concern Status LastModified by Organization Details LastModified Time None Recorded Advance Directives Directive None Recorded Payers Insurance Date Sequence Insurance Name Policy Number Policy Vidal Covered Member ID Vidal Member ID Guarantor Name 08/08/[address] [place] [address] [id number] Charlie Jaime [id number] Virgen Carlson Notes Date Note Type Note Provider Name and Address Organization Details Recorded Time 05/25/2020 text/html She is here for annual exam, doing well with aristocort for lichen sclerosis, elects to continue, and estradiol vaginal cream for atrophy as well. Shante Bergeron MD [address] [facility],[address], [place], [address], [place] [facility], 05/25/2020 10:35:59 05/30/2021 text/html She is here [...] her [place] number. Shante Bergeron MD [address] [facility],[address], [place], [address], [place] - [facility], 05/30/2021 09:51:40 06/09/2022 text/html She is here [...] medication for a 5 year plan from mally Macias decrease her risks of development of breast [...] it may cost. Shante Bergeron MD [address] [facility],[address], [place], [address], [place] - [facility], 06/09/2022 15:00:07 07/23/2023 text/html She is here [...] it stings . Shante Bergeron MD [address] [facility],[address], [place], [address], [place] - [facility], 07/23/2023 15:05:01 08/11/2024 text/html She is here for annual, doing well, using the 2 creams regularly, the Aristocort and the estradiol, and with good benefit. Note from 2022: She is here for annual, last filled the estradiol cream 06/20, the Aristocort 06/19. She still has dyspareunia, But maybe I'm not using the creams enough. Shante Bergeron MD [address], [place], [phone], [place] - [facility], 08/11/2024 10:42:34 OBGyn Episode No OBEpisode recorded.
== END 2025-09-08 10:16 | disposition home or self-care (01) ==
PROVIDERS: PCP Internal Medicine; Visit Provider Surgery
DX: Z91.89 Other specified personal risk factors, not elsewhere classified (principal); Z80.3 Family history of malignant neoplasm of breast
CPT/HCPCS: 99213; G2211

== ENCOUNTER 2025-11-09 13:36 | Outpatient (REF) | payer OTHER, SELFPAY ==
--- NOTE | ~2025-11-09 | MM_ITS ---
EXAMINATION: MM SCREENING DIGITAL BREAST TOMOSYNTHESIS, BILATERAL CLINICAL INFORMATION: -Screening. Asymptomatic. -Stereotactic needle core biopsy of the right breast on October 10, 2020. Pathology results showed benign breast parenchyma with dense stromal fibrosis, apocrine metaplasia, dilated ducts, and hemosiderin related macrophages and stromal calcifications. T-shaped marker placed. Note that the prior MR biopsy barbell shape clip was included in one of the core biopsies. -MR guided needle core biopsy of the right breast on December 18, 2017. Pathology results showed benign breast tissue with stromal fibrosis, apocrine metaplasia and microcysts. Barbell shaped marker clip. COMPARISON: Comparison made to multiple prior, most recent November 03, 2024, and most remote October 01, 2020. TECHNIQUE: Digital breast tomosynthesis is performed in mediolateral oblique and craniocaudal views along with computer-aided detection (CAD). Synthesized 2D images are generated from the tomosynthesis. FINDINGS: BREAST COMPOSITION: The breasts are heterogeneously dense, which may obscure small masses. RIGHT BREAST: Top hat shape tissue marker from previous needle core biopsy. No significant masses, suspicious calcifications or other abnormalities are seen. LEFT BREAST: No significant masses, suspicious calcifications or other abnormalities are seen. MM/MM tomosynthesis screening BI IMPRESSION: BILATERAL BREASTS: Benign, no mammographic evidence of malignancy. Normal interval follow-up is recommended in 12 months. ASSESSMENT: BI-RADS: Category 2: Benign RECOMMENDATION: Routine annual mammography screening. FOLLOW-UP: 1 year F/U This examination should not preclude the clinical evaluation of a suspicious palpable abnormality. This patient's information was entered into a reminder system with a target due date for their next mammogram. Electronically signed by: Rodrigo Narvaez MD 11/09/2025 08:34 PM [facility] [place]
== END 2025-11-09 13:37 | disposition home or self-care (01) ==
LOC: HO.MAMMO 13:36
PROVIDERS: PCP Internal Medicine; Visit Provider Internal Medicine
DX: Z12.31 Encounter for screening mammogram for malignant neoplasm of breast (principal)
CPT/HCPCS: 77063; 77067

== ENCOUNTER → 2025-11-09 14:00 | Outpatient (BNV) | payer OTHER, SELFPAY | PROVIDERS: PCP Internal Medicine; Visit Provider Radiology Body Imaging | DX: Z12.31 Encounter for screening mammogram for malignant neoplasm of breast (principal) | CPT/HCPCS: 77063; 77067 ==